=== PATIENT | male | born 1960 | race Caucasian/White ===

== ENCOUNTER → 2020-01-08 09:48 | Outpatient (BNVA) | payer SELFPAY | PROVIDERS: PCP Nurse Practitioner Family; Visit Provider Nurse Practitioner | DX: I10 Essential (primary) hypertension (principal); I48.91 Unspecified atrial fibrillation | CPT/HCPCS: 80053; 80061; 81000; 84443; 85025 ==

== ENCOUNTER → 2020-01-15 15:31 | Outpatient (BNVA) | payer SELFPAY | PROVIDERS: PCP Nurse Practitioner Family; Visit Provider Nurse Practitioner | DX: R73.09 Other abnormal glucose (principal) | CPT/HCPCS: 83036 ==

== ENCOUNTER 2020-01-23 16:42 | Observation (INO) | payer SELFPAY ==
[2020-01-23] VITALS (9 sets, daily range): BP systolic 100–147; BP diastolic 68–115; PULSE 56–157; RESP 10–22; TEMP 36.4–36.9; O2SAT 94–98; BMI 30.9
--- NOTE | 2020-01-23 17:03 | ECG_ITS ---
Measurements Intervals [place] Rate: 128 P: [place]: 0 QRS: 17 QRSD: 113 T: 92 QT: 237 QTc: 346 ATRIAL FIBRILLATION WITH RAPID VENTRICULAR RESPONSE MODERATE INTRAVENTRICULAR CONDUCTION DELAY [110+ ms QRS DURATION] NONSPECIFIC ST & T-WAVE ABNORMALITY Compared to ECG 11/01/2017 17:35:44 Intraventricular conduction delay now present T-wave abnormality now present Sinus bradycardia no longer present Electronically Signed On 01-24-2020 13:03:16 CDT by Steven Walters M.D. [id number]
--- NOTE | 2020-01-23 17:03 | XR_ITS ---
WS: [id number] PORTABLE CHEST HISTORY: afib with rvr COMPARISON: 11/01/2017 Lungs are clear and well expanded. No pleural effusion or pneumothorax. Cardiac size: Normal. Mediastinum/Aorta: Normal mediastinum. No osseous abnormality seen. XR/XR chest 1V portable [id number] IMPRESSION: Unremarkable portable chest.
--- NOTE | 2020-01-23 17:03 | W.ED.GENADLT ---
HPI - General Adult General: Chief complaint: General Medical Stated complaint: fast hr Time Seen by Provider: 01/23/20 16:54 History of Present Illness: HPI narrative: 59-year-old male with history of atrial fibrillation that was on sotalol until a few days ago presents by private vehicle complaining of palpitations that started an hour and a half ago while cutting logs. Dizzy at times diaphoretic. He saw Dr. Vila for the first time a couple of days ago because his heart rate was in the 40s on the sotalol and he was advised to stop taking the sotalol. He states he is never been on any other medication for his A. fib. Denies any chest pain at this time. Associated symptoms: Reports chest pain and palpitations; Deny dyspnea, headache(s), nausea, rash or vomiting Review of Systems General: Reports: 10 or more systems reviewed and unremarkable except in HPI and below Const: Denies: fever(s) or chills Eyes: Denies: change in vision ENMT: Denies: throat pain Card: Reports: chest pain, palpitations, irregular heart rhythm and lightheadedness Resp: Denies: dyspnea GI: Denies: abdominal pain, nausea, vomiting or change in bowel habits : Denies: flank pain Musc: Denies: muscle weakness Skin/Breast: Denies: rash Neuro: Denies: headache(s) Psych: Denies: hopelessness or suicidal ideation Endo: Denies: polyuria Teddy/Lymph: Denies: easy bruising or easy bleeding All/Imm: Denies: urticaria PFS ED PFSH: Medical History (Updated 01/22/20 @ 15:48 by ROSANNA Valentino) Anxiety Atrial fibrillation Hypertension Mixed hyperlipidemia Surgical History History of coronary angioplasty 2016 in [place], [place] History of extraction of renal calculus Family History Other Cancer Diabetes Heart disease Social History Smoking and tobacco status: former smoker Second hand smoke exposure: No Smoking risk assessment/counseling performed?: No Alcohol intake: current Alcohol intake frequency: holidays/special occasions only Desire information about alcohol rehabilitation?: No Counseling given: No Desire information about substance/drug rehabilitation?: No Counseling given: No History of recent travel: No Current gender identity: Male Physical Exam Const: COMMON NORMALS: no acute distress, average body habitus, patient oriented x3, no limitations, healthy appearing, alert and well nourished HENMT: COMMON NORMALS: normocephalic, external ears normal and Normal external nose present HEAD & SCALP: normocephalic NOSE: Normal external nose present EXTERNAL EAR: Yes external ears normal MOUTH: Normal oral and palatal mucosa present THROAT: posterior oropharynx normal Eye: COMMON NORMALS: Equal, round and reactive pupils present, EOMs intact bilaterally, conjunctivae normal, no scleral icterus and normal visual hovoer by confrontation CONJUNCTIVA: Yes conjunctivae normal PUPIL: Yes Equal, round and reactive pupils present Neck/C-Spine: COMMON NORMALS: full ROM, no lymphadenopathy, supple and no meningeal signs CERVICAL SPINE: Yes cervical ROM normal Lymph: LYMPHATIC: no lymphadenopathy noted Chest: COMMONS NORMALS: normal inspection of the chest Resp: COMMON NORMALS: normal respiratory effort, No retractions, No use of accessory muscles and clear to auscultation bilaterally AUSCULTATION: clear to auscultation bilaterally Cardio: COMMON NORMALS: Peripheral pulses 2+ throughout PERIPHERAL PULSES: Peripheral pulses 2+ throughout and radial pulses present OTHER: Tachycardia irregularly irregular. GI: COMMON NORMALS: Normal to inspection, nondistended, normoactive bowel sounds present, Soft to palpation and non-tender AUSCULTATION: Yes normoactive bowel sounds PALPATION: Yes Soft to palpation : COMMON NORMALS: Yes no CVA tenderness BLADDER/KIDNEY EXAM: Yes no CVA tenderness Back/Pelvis: COMMON NORMALS: no CVA tenderness Extremity: COMMON NORMALS: normal to inspection Neuro: COMMON NORMALS: patient oriented x3 SENSORIUM/ORIENTATION: Yes alert MENINGEAL SIGNS: Yes no meningeal signs SPEECH: speech normal Psych: COMMON NORMALS: mental status grossly normal, Normal thought process present, cooperative, normal affect, speech normal, activity/motor behavior normal, denies hallucinations, denies homicidal ideation and denies suicidal ideation SPEECH: Yes normal speech THOUGHT PROCESS: Normal thought process present Skin: COMMON NORMALS: no rashes or lesions noted GENERAL SKIN EXAM: no rashes or lesions noted Course Vital Signs: Vital signs: Vital Signs Temperature 97.5 F L 01/23/20 21:47 Pulse Rate 60 01/23/20 22:18 Respiratory Rate 17 01/23/20 22:18 Blood Pressure 103/68 01/23/20 22:18 Pulse Oximetry 94 01/23/20 22:18 MDM - General Adult MDM Narrative: Medical decision making narrative: Patient given metoprolol 5 mg IV heart rate improved to 128 will repeat he is allergic to amlodipine causes swelling so held off on Cardizem at this time. We will continue to closely monitor. Loaded with digoxin after not seen a significant change with metoprolol. Heart rate currently in the 120s after 3 doses of metoprolol 5 mg each IV and loaded with digoxin patient feels much better at this time no chest pain or pressure. Discussed with hospitalist will admit. I also discussed with Dr. Walters who is on-call for cardiology he had nothing to add at this time and tells me that Dr. Rea is on-call tomorrow since he saw this patient for the first time a couple of days ago if hospital service consults will be Dr. Rea sees the patient tomorrow. Lab Data: Attestation: I reviewed the patient's lab results. Labs: Lab Results 01/23/20 01/23/20 01/23/20 Range/Units 17:26 17:26 17:26 WBC 8.9 (4.0-10.0) 10^3/ uL RBC 4.68 (4.1-5.3) 10^6/u L Hgb 14.7 (11.7-16.6) g/dL Hct 41.5 L (42.0-52.0) % MCV 88.7 (80-94) fL MCH 31.4 (28.0-34.0) pg MCHC 35.4 (30.0-36.0) g/dL RDW 12.0 L (12.1-15.1) % Plt Count 281 (130-400) 10^3/c mm MPV 9.9 (7.4-10.4) fL Neut % (Auto) 71.3 % Lymph % (Auto) 16.9 % [place] % (Auto) 8.4 % Eos % (Auto) 2.6 % Baso % (Auto) 0.6 % Neut # (Auto) 6.4 (1.8-7.7) 10^3/u L Lymph # (Auto) 1.5 (0.8-4.8) 10^3/u L [place] # (Auto) 0.8 (0.2-0.9) 10^3/u L Eos # (Auto) 0.2 (0.0-0.8) 10^3/u L Baso # (Auto) 0.1 (0.0-0.1) 10^3/u L Nucleated RBC % (a uto) 0 % Nucleated RBCs # 0.0 /100WBC Sodium 138 (136-145) mmol/L Potassium 3.4 L (3.5-5.1) mmol/L Chloride 101 (98-107) mmol/L Carbon Dioxide 20 L (22-29) mmol/L Anion Gap 20.4 H (5-19) BUN 17 (8-23) mg/dL Creatinine 1.1 (0.7-1.2) mg/dL GFR Calculation 68.3 L (90-130) mL/min Glucose 99 (65-115) mg/dL Calculated Osmolal ity 282 L (285-295) mOsm/k g Calcium 9.1 (8.5-10.5) mg/dL Total Bilirubin 0.5 (0.15-1.2) mg/dL AST 19 (0-40) U/L ALT 19 (0-41) U/L Alkaline Phosphata se 74 (40-130) IU/L Troponin T Baselin e 13 (0-15) ng/mL Troponin T 120 Min floresita (0-15) ng/mL Delta Troponin T (0-10) ABS# Total Protein 7.5 (6.6-8.7) g/dL Albumin 4.6 (3.5-5.2) g/dL Globulin 2.9 (1.3-4.6) g/dL / Range/Units 19:48 WBC (4.0-10.0) 10^3/ uL RBC (4.1-5.3) 10^6/u L Hgb (11.7-16.6) g/dL Hct (42.0-52.0) % MCV (80-94) fL MCH (28.0-34.0) pg MCHC (30.0-36.0) g/dL RDW (12.1-15.1) % Plt Count (130-400) 10^3/c mm MPV (7.4-10.4) fL Neut % (Auto) % Lymph % (Auto) % [place] % (Auto) % Eos % (Auto) % Baso % (Auto) % Neut # (Auto) (1.8-7.7) 10^3/u L Lymph # (Auto) (0.8-4.8) 10^3/u L [place] # (Auto) (0.2-0.9) 10^3/u L Eos # (Auto) (0.0-0.8) 10^3/u L Baso # (Auto) (0.0-0.1) 10^3/u L Nucleated RBC % (a uto) % Nucleated RBCs # /100WBC Sodium (136-145) mmol/L Potassium (3.5-5.1) mmol/L Chloride (98-107) mmol/L Carbon Dioxide (22-29) mmol/L Anion Gap (5-19) BUN (8-23) mg/dL Creatinine (0.7-1.2) mg/dL GFR Calculation (90-130) mL/min Glucose (65-115) mg/dL Calculated Osmolal ity (285-295) mOsm/k g Calcium (8.5-10.5) mg/dL Total Bilirubin (0.15-1.2) mg/dL AST (0-40) U/L ALT (0-41) U/L Alkaline Phosphata se (40-130) IU/L Troponin T Baselin e (0-15) ng/mL Troponin T 120 Min floresita 25.02 H (0-15) ng/mL Delta Troponin T 12.02 H* (0-10) ABS# Total Protein (6.6-8.7) g/dL Albumin (3.5-5.2) g/dL Globulin (1.3-4.6) g/dL Imaging Data^: CXR: Attestation: I personally reviewed and interpreted this imaging study as follows: My impression: Although this is a portable chest. He may have some cardiomegaly lungs are clear EKG Data^: EKG 1: Attestation: I personally reviewed and interpreted this EKG as follows: EKG interpretation date: 01/23/20 EKG interpretation time: 16:54 Prior EKG tracings: not available for review Interpretation: hr 146 afib with rvr EKG 2: Attestation: I personally reviewed and interpreted this EKG as follows: EKG interpretation date: 01/23/20 EKG interpretation time: 17:13 Interpretation: A. fib with RVR heart rate now 128 Critical Care Time Critical Care Time: Critical Care Time: Yes Total Critical Care Time: 30 Attestation: This case had a high probability of a clinically significant, sudden, or life threatening deterioration of this patient's condition which required my full and direct attention, intervention and personal management. Discharge Plan Discharge Patient Disposition: Admitted As Inpatient Admit Provider: Emanuel Weber Condition: Stable Discharge Date/Time: 01/23/20 20:46 Coding Level of Care Code ED Television Production Assistant for Chg Fwd Exam Comprehensive
[2020-01-23] MEDS: metoprolol tartrate 1 mg/1 mL SDV 5 mL 5 MG IV ×3 (17:07→18:32)
[2020-01-23] MEDS: sodium chloride 0.9% 500 ML 999 ML IV (17:08)
[2020-01-23 17:54] LABS: Basophils # 0.1 10^3/uL (0.0-0.1); Basophils % 0.6 %; Eosinophils # 0.2 10^3/uL (0.0-0.8); Eosinophils % 2.6 %; Hematocrit 41.5 % (42.0-52.0); Hemoglobin 14.7 g/dL (11.7-16.6); Lymphocytes # 1.5 10^3/uL (0.8-4.8); Lymphocytes % 16.9 %; Mean Corpuscular HGB Conc 35.4 g/dL (30.0-36.0); Mean Corpuscular Hemoglobin 31.4 pg (28.0-34.0); Mean Corpuscular Volume 88.7 fL (80-94); Mean Platelet Volume 9.9 fL (7.4-10.4); Monocytes # 0.8 10^3/uL (0.2-0.9); Monocytes % 8.4 %; Neutrophils # 6.4 10^3/uL (1.8-7.7); Neutrophils % 71.3 %; Nucleated Red Blood Cells % 0 %; Platelet Count 281 10^3/cmm (130-400); Red Blood Count 4.68 10^6/uL (4.1-5.3); White Blood Count 8.9 10^3/uL (4.0-10.0)
[2020-01-23 18:12] LABS: Alanine Aminotransferase 19 U/L (0-41); Albumin Level 4.6 g/dL (3.5-5.2); Alkaline Phosphatase 74 IU/L (40-130); Anion Gap 20.4 (5-19); Aspartate Amino Transferase 19 U/L (0-40); Blood Urea Nitrogen 17 mg/dL (8-23); Calcium 9.1 mg/dL (8.5-10.5); Carbon Dioxide 20 mmol/L (22-29); Chloride 101 mmol/L (98-107); Globulin 2.9 g/dL (1.3-4.6); Glomerular Filtration Rate 68.3 mL/min (90-130); Glucose 99 mg/dL (65-115); Osmolality Calculated 282 mOsm/kg (285-295); Potassium 3.4 mmol/L (3.5-5.1); Sodium 138 mmol/L (136-145); Total Bilirubin 0.5 mg/dL (0.15-1.2); Total Protein 7.5 g/dL (6.6-8.7)
[2020-01-23 18:13] LABS: Troponin(5th) Baseline 13 ng/mL (0-15)
[2020-01-23] MEDS: digoxin 250 mcg/ml INJ 2 mL IVP (18:57)
--- NOTE | 2020-01-23 19:43 | PC.NURSE ---
EKG done at 1940 and shown to ER doctor
[2020-01-23 20:19] LABS: Troponin 5 2HR 25.02 ng/mL (0-15)
[2020-01-23 20:30] LABS: Troponin 5 2HR Delta 12.02 ABS# (0-10)
--- NOTE | 2020-01-23 20:33 | PC.NURSE ---
Received critical 2-hour troponin 25.02 and delta 12.02, notified Dr. Todd
--- NOTE | 2020-01-23 21:12 | P.HP_ITS ---
Providers/Chief Complaint Admitting Physician: Emanuel Weber Primary Care Provider: ROSANNA Valentino Chief Complaint: fast hr History of Present Illness Terrell Hatfield is a 59 year old male with past medical history of atrial fibrillation, hypertension, dyslipidemia, recently diagnosed diabetes who is presenting with complaints of palpitations since earlier today. The patient is found to have A. fib with RVR on presentation. He was on sotalol until recently. The dose was gradually decreased recently and stopped several days ago. 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 The patient reports palpitations which were pretty severe. He was given 3 doses of IV metoprolol and was loaded with digoxin. Currently the heart rate is in 120s. He feels a little better. He denies any chest pain. Reports tiredness. No dizziness or lightheadedness. No shortness of breath. He reports similar episodes in the past. He reports allergy to amlodipine which causes generalized swelling. The patient denies any other changes to his medications. He also denies any recreational drugs or excessive or regular alcohol. Review of Systems General: Reports: 10 or more systems reviewed and unremarkable except in HPI and below Medications/Allergies Home Medications Medication Instructions Recorded Confirmed Last Taken Type atorvastatin 40 mg tablet 40 mg PO DAILY 01/07/20 01/23/20 01/23/20 History azilsartan medoxomil 40 1 tab PO DAILY 01/07/20 01/23/20 01/23/20 History mg-chlorthalidone 12.5 mg tablet paroxetine HCl 40 mg tablet 40 mg PO DAILY 01/07/20 01/23/20 01/23/20 History sotalol 120 mg tablet 120 mg PO BID 01/07/20 01/23/20 01/21/20 History metformin 500 mg tablet,extended 500 mg PO BID #60 tab 01/22/20 01/23/20 01/23/20 Rx release 24 hr [id number]-mwhfrxrwrymtu-fstvywjy 2 tab PO Q6H PRN 01/23/20 01/23/20 Unknown History [Excedrin Extra Strength] Allergies Allergy/AdvReac Type Severity Reaction Status Date / Time amlodipine Allergy Unknown ALGY-Swell Verified 01/23/20 16:15 Lip/Tongue/Throat PFSH Acute PFSH: Medical History (Updated 01/22/20 @ 15:48 by ROSANNA Valentino) Anxiety Atrial fibrillation Hypertension Mixed hyperlipidemia Surgical History History of coronary angioplasty 2016 in [place], [place] History of extraction of renal calculus Family History Other Cancer Diabetes Heart disease Social History Smoking and tobacco status: former smoker Second hand smoke exposure: No Smoking risk assessment/counseling performed?: No Alcohol intake: current Alcohol intake frequency: holidays/special occasions only Desire information about alcohol rehabilitation?: No Counseling given: No Desire information about substance/drug rehabilitation?: No Counseling given: No History of recent travel: No Current gender identity: Male Vitals/I&O/Wt Last Vital Signs Temp 97.7 F 01/23/20 16:50 Pulse 135 H 01/23/20 20:53 Resp 10 L 01/23/20 20:53 BP 110/80 01/23/20 20:53 Pulse Ox 96 01/23/20 20:53 Weight last 48 hrs Weight 106.594 kg Physical Exam Narrative: EXAM NARRATIVE: The patient is awake alert and oriented. No acute distress. Mood and affect are appropriate. Responses are adequate. Skin is warm and dry. Moist mucous membranes. Eyes Michela, extraocular muscle intact. Neck is supple. No JVD Lungs are clear bilaterally. No respiratory distress Heart S1, S2, irregularly irregular Abdomen soft, nontender, bowel sounds are present. Extremities no edema cyanosis or calf tenderness bilaterally Neurological examination is nonfocal. Data : 01/23/20 17:26 01/23/20 17:26 Other Labs: Laboratory Results WBC 8.9 10^3/uL (4.0-10.0) 01/23/20 17: RBC 4.68 10^6/uL (4.1-5.3) 01/23/20 17: Hgb 14.7 g/dL (11.7-16.6) 01/23/20 17: Hct 41.5 % (42.0-52.0) L 01/23/20 17: MCV 88.7 fL (80-94) 01/23/20 17: MCH 31.4 pg (28.0-34.0) 01/23/20 17: MCHC 35.4 g/dL (30.0-36.0) 01/23/20 17: RDW 12.0 % (12.1-15.1) L 01/23/20 17: Plt Count 281 10^3/cmm (130-400) 01/23/20 17: MPV 9.9 fL (7.4-10.4) 01/23/20 17: Neut % (Auto) 71.3 % 01/23/20 17: Lymph % (Auto) 16.9 % 01/23/20 17: [place] % (Auto) 8.4 % 01/23/20 17: Eos % (Auto) 2.6 % 01/23/20 17: Baso % (Auto) 0.6 % 01/23/20: Neut # (Auto) 6.4 10^3/uL (1.8-7.7) 01/23/20 17: Lymph # (Auto) 1.5 10^3/uL (0.8-4.8) 01/23/20 17: [place] # (Auto) 0.8 10^3/uL (0.2-0.9) 01/23/20 17: Eos # (Auto) 0.2 10^3/uL (0.0-0.8) 01/23/20 17: Baso # (Auto) 0.1 10^3/uL (0.0-0.1) 01/23/20 17: Nucleated RBC % (auto) 0 % 01/23/20: Nucleated RBCs # 0.0 /100WBC 01/23/20 17: Sodium 138 mmol/L (136-145) 01/23/20 17: Potassium 3.4 mmol/L (3.5-5.1) L 01/23/20 17: Chloride 101 mmol/L (98-107) 01/23/20 17: Carbon Dioxide 20 mmol/L (22-29) L 01/23/20 17: Anion Gap 20.4 (5-19) H 01/23/20 17: BUN 17 mg/dL (8-23) 01/23/20 17:26 Creatinine 1.1 mg/dL (0.7-1.2) 01/23/20 17:26 GFR Calculation 68.3 mL/min (90-130) L 01/23/20 17:26 Glucose 99 mg/dL (65-115) 01/23/20 17:26 Calculated Osmolality 282 mOsm/kg (285-295) L 01/23/20 17:26 Calcium 9.1 mg/dL (8.5-10.5) 01/23/20 17:26 Total Bilirubin 0.5 mg/dL (0.15-1.2) 01/23/20 17:26 AST 19 U/L (0-40) 01/23/20 17:26 ALT 19 U/L (0-41) 01/23/20 17:26 Alkaline Phosphatase 74 IU/L (40-130) 01/23/20 17:26 Troponin T Baseline 13 ng/mL (0-15) 01/23/20 17:26 Troponin T 120 Minute 25.02 ng/mL (0-15) H 01/23/20 19:48 Delta Troponin T 12.02 ABS# (0-10) H* 01/23/20 19:48 Total Protein 7.5 g/dL (6.6-8.7) 01/23/20 17:26 Albumin 4.6 g/dL (3.5-5.2) 01/23/20 17:26 Globulin 2.9 g/dL (1.3-4.6) 01/23/20 17:26 A&P Additional A&P Information 59-year-old gentleman with past medical history of atrial fibrillation, hypertension, dyslipidemia and recently diagnosed diabetes who presents with palpitations. He has A. fib with RVR. I suspect that RVR is related to recently discontinued sotalol. A. fib/RVR. The patient is loaded with digoxin and was given metoprolol IV. We will continue as needed metoprolol. We will try to avoid Cardizem due to history of amlodipine allergy. He was previously considered for anticoagulati on. However he chose not to take anticoagulation due to his profession. 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 His chads 2 score is 2. I believe these for patient and his sales service route manager to decide after initial evaluation. We will also check his TSH. We will monitor his potassium and magnesium level. Hypokalemia. Will replace p.o. and monitor. DVT prophylaxis. Enoxaparin. Diabetes. We will hold his metformin and start him on insulin sliding scale. The patient wants to be full code. The plan of care was discussed with the patient. He verbalized understanding and agreement. Attestations Medical Necessity Statement*: Observation Coding Level of Care Code Acute Cook Vegetable for Herbert Fisher
--- NOTE | 2020-01-23 23:03 | ECG_ITS ---
Measurements Intervals [place] Rate: 130 P: [place]: 0 QRS: 21 QRSD: 101 T: 53 QT: 298 QTc: 439 ATRIAL FIBRILLATION WITH RAPID VENTRICULAR RESPONSE NONSPECIFIC T-WAVE ABNORMALITY ABNORMAL RHYTHM ECG Compared to ECG 11/01/2017 17:35:44 T-wave abnormality now present Sinus bradycardia no longer present Electronically Signed On 01-24-2020 13:07:01 CDT by Steven Walters M.D. [id number]
[2020-01-23] MEDS: enoxaparin 40 mg/0.4 mL Syringe SUBCUT (23:33)
[2020-01-24 00:12] LABS: Troponin 5 6HR 27.76 ng/mL (0-15)
[2020-01-24 00:18] LABS: Troponin 5 6HR Delta 14.76 ng/L (0-12)
[2020-01-24 00:21] LABS: Thyroid Stimulating Hormone 1.76 uIU/mL (0.27-4.20)
[2020-01-24 04:00] VITALS: BP 108/68; PULSE 52; RESP 18; TEMP 36.8; O2SAT 98
[2020-01-24] MEDS: acetaminophen 325 mg Tablet 650 MG PO (04:03)
[2020-01-24 05:04] LABS: Blood Urea Nitrogen 17 mg/dL (8-23); Calcium 9.3 mg/dL (8.5-10.5); Carbon Dioxide 23 mmol/L (22-29); Chloride 104 mmol/L (98-107); Chol HDL Ratio 4.07 mg/dL (1.0-5.00); Cholesterol 118 mg/dL (0-200); Glomerular Filtration Rate 76.2 mL/min (90-130); Glucose 104 mg/dL (65-115); HDL Cholesterol 29 mg/dL (60-100); LDL Cholesterol Calculated 50 mg/dL (50-129); LDL HDL Ratio 1.72 RATIO (0.00-3.22); Magnesium 2.3 mg/dL (1.7-2.3); Osmolality Calculated 285 mOsm/kg (285-295); Phosphorus 3.3 mg/dL (2.5-4.5); Sodium 139 mmol/L (136-145); Triglycerides 197 mg/dL (0-150)
[2020-01-24 06:27] LABS: Glucose Point of Care 92 mg/dL (70-110)
[2020-01-24 08:06] VITALS: BP 106/68; PULSE 52; RESP 10; TEMP 36.5; O2SAT 98
[2020-01-24] MEDS: atorvastatin 40 mg Tablet PO (09:23)
--- NOTE | 2020-01-24 10:34 | PC.CHAP ---
Pastoral Care Encounter/Spiritual Assessment Type of Contact [] Declined guest service host visit [] Patient/Family/Request visit [] Outpatient visit [] Follow-up visit [] Physician referral [] Code/Alert [x] Routine visit [] Staff referral [] Actively dying [] Patient sleeping [] Family support [] [] Out of room [] Palliative care [] [] Receiving care in room [] Pre-surgical visit [] Trauma [] Long length of stay [] ICU visit [] Other: Relational/Emotional Strength [x] Patient feels connected with others/family/visitors/staff [] Distress [] Loneliness/isolation [] Abandonment Spirituality of Patient [x] Person of Gerri [] Attends Yarsanism of their Gerri [x] Believes in Prayer [x] Reads Bible or Baptism materials [] There are Spiritual issues to be addressed Decision Support Analyst Interventions [x] Prayer [x] Active listening [x] Non-anxious presence [] Spiritual/emotional support [] Crisis/trauma care [] Spiritual counseling [] Bereavement support [] Provided bereavement packet [] Provided Bible/devotional materials [] Provided toy/stuffed animal, coloring book to patient or family member [] Provided Communion [] Anointing/[place] [] Salvation [] Completed spiritual assessment [] Other: Impact on Illness or Injury [] Angry [] Fearful [] Anxious [] Often cries [] Exhaustion [] Unable to work [] Unable to attend quaker [] Unable to walk/stand [] Unable to read [] Unable to drive [] Unable to eat/drink [] Unable to sleep [] Unable to be with family [] Patient intubated [] Other: Summary Pt expects to be discharged later today Decision Support Analyst Carrol Grimes Time spent with patient 7 minutes
[2020-01-24 12:00] VITALS: BP 140/77; PULSE 66; RESP 18; TEMP 36.7; O2SAT 96
[2020-01-24 12:09] LABS: Glucose Point of Care 154 mg/dL (70-110)
--- NOTE | 2020-01-24 13:21 | PM.CONSULT ---
Providers/Reason For Consult Consulting Physican/Specialty*: Cardiology Reason for Consult*: Tachybradycardia syndrome Attending Physician: Arnie Gonzalez MD Primary Care Provider: ROSANNA Valentino History of Present Illness History of Present Illness Terrell Hatfield is a 59 year old male admitted with atrial fibrillation rapid ventricular response started on Cardizem which resulted in conversion to sinus rhythm however patient was noted to have bradycardia over the telemetry into 50s occasionally drop down to 40s. It is the reason we have been asked to come and see him. Recently patient visited with me in the clinic. He has underlying sick sinus syndrome. At one point he was on sotalol 120 twice daily which was reduced to 60 once a days nowadays as his heart rate slowing down. He saw me few days ago in my clinic due to significant bradycardia with heart rate into 40s I discontinue sotalol however patient ended up in the hospital with A. fib RVR. 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 In the past we have initiated talk about possible A. fib ablation versus medicine and possibility of pacemaker placement for therapeutic purpose. We have tried our best in optimizing medicine and regularizing heart rate. Patient has refused anticoagulation. He understands the risks. He is a carpenter foreman therefore he does not want to take any risk for bleeding. Review of Systems General: Reports: 10 or more systems reviewed and unremarkable except in HPI and below Const: Denies: fever(s) or chills Eyes: Denies: change in vision ENMT: Denies: throat pain Card: Reports: chest pain, palpitations, irregular heart rhythm and lightheadedness Resp: Denies: dyspnea GI: Denies: abdominal pain, nausea, vomiting or change in bowel habits : Denies: flank pain Musc: Denies: muscle weakness Skin/Breast: Denies: rash Neuro: Denies: headache(s) Psych: Denies: hopelessness or suicidal ideation Endo: Denies: polyuria Teddy/Lymph: Denies: easy bruising or easy bleeding All/Imm: Denies: urticaria Meds/Allergies Home Medications and Allergies Home Medications Medication Instructions Recorded Confirmed Last Taken Type atorvastatin 40 mg tablet 40 mg PO DAILY 01/07/20 01/23/20 01/23/20 History azilsartan medoxomil 40 1 tab PO DAILY 01/07/20 01/23/20 01/23/20 History mg-chlorthalidone 12.5 mg tablet paroxetine HCl 40 mg tablet 40 mg PO DAILY 01/07/20 01/23/20 01/23/20 History metformin 500 mg tablet,extended 500 mg PO BID #60 tab 01/22/20 01/23/20 01/23/20 Rx release 24 hr vohmswf-mdltpllnhtokp-gkcyvqfh 2 tab PO Q6H PRN 01/23/20 01/23/20 Unknown History [Excedrin Extra Strength] sotalol 60 mg PO DAILY #0 tab 01/24/20 01/23/20 01/21/20 Rx Allergies Allergy/AdvReac Type Severity Reaction Status Date / Time amlodipine Allergy Unknown ALGY-Swell Verified 01/23/20 16:15 Lip/Tongue/Throat Current Medications Current Medications Generic Name Dose Route Start Last Admin Trade Name Freq PRN Reason Stop Dose Admin Acetaminophen 650 mg 01/23/20 21:02 01/24/20 04:03 Tylenol PO 650 mg Q6H PRN Administration Mild/Mod Pain Or Temp >/= 101 Atorvastatin Calcium 40 mg 01/24/20 09:00 01/24/20 09:23 Lipitor PO 40 mg DAILY LUCINDA Administration Enoxaparin Sodium 40 mg 01/23/20 21:15 01/23/20 23:33 Lovenox SUBCUT 40 mg Q24H LUCINDA Administration Insulin Aspart 0 unit 01/24/20 08:00 01/24/20 12:07 Novolog SUBCUT 2 unit TIDWM LUCINDA Administration Protocol PFSH Acute PFSH: Medical History Anxiety Atrial fibrillation Hypertension Mixed hyperlipidemia Surgical History History of coronary angioplasty 2016 in [place], [place] History of extraction of renal calculus 1979' Family History Other Cancer Diabetes Heart disease Social History Smoking and tobacco status: former smoker Second hand smoke exposure: No Smoking risk assessment/counseling performed?: No Alcohol intake: current Alcohol intake frequency: holidays/special occasions only Desire information about alcohol rehabilitation?: No Counseling given: No Desire information about substance/drug rehabilitation?: No Counseling given: No History of recent travel: No Current gender identity: Male Dietary Habits: Current diet type/program: regular Caffeine: Yes Exercise: What type of physical activity do you participate in?: none Safety: Seatbelt use: always Home Safety: Working smoke detector in home: Yes Fire extinguisher in home: Yes Carbon monoxide detector in home: Yes Vitals/I&O/Wt Last Vital Signs Temp 98.1 F 01/24/20 12:00 Pulse 66 01/24/20 12:00 Resp 18 01/24/20 12:00 BP 140/77 01/24/20 12:00 Pulse Ox 96 01/24/20 12:00 01/23/20 01/24/20 01/24/20 22:59 06:59 14:59 Intake Total 120 / 120 Balance 120 / 120 Weight last 48 hrs Weight 234 lb 1.6 oz Weight 233 lb 8 oz Weight 235 lb Physical Exam Narrative: EXAM NARRATIVE: GENERAL: Patient is alert, awake and oriented x3. NECK: No jugular vein distension. HEENT: No cyanosis. No icterus. No pallor. HEART: Regular S1 and S2. No murmur, rub or gallop. LUNGS: Clear to auscultate bilaterally. ABDOMEN: Soft, nontender and nondistended. Positive bowel sounds. No guarding, rebound or tenderness. CENTRAL NERVOUS SYSTEM: Grossly nonfocal. EXTREMITIES: Lower extremities without edema bilaterally. A&P Assessment and plan (1) Atrial fibrillation: Really patient is sinus rhythm we will put him on 60 mg of sotalol. We will send him home with event monitor since it is not available he may can pick it up on Monday. Patient has been advised in case of episode of A. fib he can increase sotalol to 60 mg twice a day and let me know. Based upon event monitor report we will decide whether he needs a pacemaker or not. Patient has been advised in case of slowness of heart rate dizziness fatigue he should come to the ER. Status: Chronic (2) Hypertension: Well-controlled. Continue medicine Status: Chronic Consult Attestations Medical Necessity Statement: Patient can be discharged home Coding Level of Care Code New Pt Acute Contract Negotiation Manager for Chg Fwd Patient Type New History Expanded Problem Focused Exam Expanded Problem Focused Medical Decision Making Moderate Complexity Diagnoses Atrial fibrillation I48.91 Hypertension I10
--- NOTE | 2020-01-24 13:54 | PM.DCS ---
Discharge Providers Date of Admission: 01/23/20 20:46 Date of Discharge: January 24, 2020 Attending Provider at Admission: Emanuel Weber Attending Provider at Discharge: Arnie Gonzalez MD Primary Care Provider: ROSANNA Valentino Reason for Visit Reason for Visit: Reason For Visit: fast hr Hospital Course Hospital Course: Terrell is a 59-year-old white male who presented with atrial fibrillation with rapid ventricular rate. He was recently taken off his sotalol. TSH was checked and normal. Troponin with no significant delta. He ultimately got several doses of IV metoprolol, and 1 dose of IV digoxin and converted to sinus rhythm, bradycardia, which was asymptomatic. Cardiology was consulted who recommended he restart on his sotalol 60 mg once daily, event monitor to be placed, and follow-up in cardiology clinic. This was arranged. Physical Exam Narrative: EXAM NARRATIVE: General exam no apparent distress Cardiovascular regular rate and rhythm without murmur, slightly bradycardic Lungs clear Abdomen is soft with positive bowel sounds Extremities no cyanosis clubbing or edema Discharge Data Data Completed and Pending: Completed Studies During Hospitalization Category Date Time Status XR chest 1V subhash ble [id number] Stat Exams 01/23/20 17:03 Completed Pending at discharge Category Date Time Status CA 30 day event m onitor Routine Exams 01/24/20 13:21 Ordered Labs from last 24 hours 01/24/20 01/24/20 01/24/20 11:43 06:18 04:00 WBC RBC Hgb Hct MCV MCH MCHC RDW Plt Count MPV Neut % (Auto) Lymph % (Auto) Dawes % (Auto) Eos % (Auto) Baso % (Auto) Neut # (Auto) Lymph # (Auto) Dawes # (Auto) Eos # (Auto) Baso # (Auto) Nucleated RBC % (a uto) Nucleated RBCs # Sodium Potassium Chloride Carbon Dioxide Anion Gap BUN Creatinine GFR Calculation Glucose POC Glucose 154 92 Calculated Osmolal ity Calcium Phosphorus Magnesium Total Bilirubin AST ALT Alkaline Phosphata se Troponin I 6 Hour Troponin I Hi Sens Del Troponin T Baselin e Troponin T 120 Min capitan grande band Delta Troponin T Total Protein Albumin Globulin Triglycerides 197 H Cholesterol 118 LDL Cholesterol, C alc 50 HDL Cholesterol 29 L LDL/HDL Ratio 1.72 Cholesterol/HDL Ra haroon 4.07 TSH 01/24/20 01/23/20 01/23/20 04:00 23:40 23:40 WBC RBC Hgb Hct MCV MCH MCHC RDW Plt Count MPV Neut % (Auto) Lymph % (Auto) Dawes % (Auto) Eos % (Auto) Baso % (Auto) Neut # (Auto) Lymph # (Auto) Dawes # (Auto) Eos # (Auto) Baso # (Auto) Nucleated RBC % (a uto) Nucleated RBCs # Sodium 139 Potassium 4.0 Chloride 104 Carbon Dioxide 23 Anion Gap 16.0 BUN 17 Creatinine 1.0 GFR Calculation 76.2 L Glucose 104 POC Glucose Calculated Osmolal ity 285 Calcium 9.3 Phosphorus 3.3 Magnesium 2.3 Total Bilirubin AST ALT Alkaline Phosphata se Troponin I 6 Hour 27.76 H Troponin I Hi Sens Del 14.76 H* Troponin T Baselin e Troponin T 120 Min cap[place] grande band Delta Troponin T Total Protein Albumin Globulin Triglycerides Cholesterol LDL Cholesterol, C alc HDL Cholesterol LDL/HDL Ratio Cholesterol/HDL Ra haroon TSH 1.76 01/23/20 01/23/20 01/23/20 19:48 17:26 17:26 WBC RBC Hgb Hct MCV MCH MCHC RDW Plt Count MPV Neut % (Auto) Lymph % (Auto) Dawes % (Auto) Eos % (Auto) Baso % (Auto) Neut # (Auto) Lymph # (Auto) Dawes # (Auto) Eos # (Auto) Baso # (Auto) Nucleated RBC % (a uto) Nucleated RBCs # Sodium 138 Potassium 3.4 L Chloride 101 Carbon Dioxide 20 L Anion Gap 20.4 H BUN 17 Creatinine 1.1 GFR Calculation 68.3 L Glucose 99 POC Glucose Calculated Osmolal ity 282 L Calcium 9.1 Phosphorus Magnesium Total Bilirubin 0.5 AST 19 ALT 19 Alkaline Phosphata se 74 Troponin I 6 Hour Troponin I Hi Sens Del Troponin T Baselin e 13 Troponin T 120 Min capitan [place] band 25.02 H Delta Troponin T 12.02 H* Total Protein 7.5 Albumin 4.6 Globulin 2.9 Triglycerides Cholesterol LDL Cholesterol, C alc HDL Cholesterol LDL/HDL Ratio Cholesterol/HDL Ra haroon TSH 01/23/20 17:26 WBC 8.9 RBC 4.68 Hgb 14.7 Hct 41.5 L MCV 88.7 MCH 31.4 MCHC 35.4 RDW 12.0 L Plt Count 281 MPV 9.9 Neut % (Auto) 71.3 Lymph % (Auto) 16.9 Dawes % (Auto) 8.4 Eos % (Auto) 2.6 Baso % (Auto) 0.6 Neut # (Auto) 6.4 Lymph # (Auto) 1.5 Dawes # (Auto) 0.8 Eos # (Auto) 0.2 Baso # (Auto) 0.1 Nucleated RBC % (a uto) 0 Nucleated RBCs # 0.0 Sodium Potassium Chloride Carbon Dioxide Anion Gap BUN Creatinine GFR Calculation Glucose POC Glucose Calculated Osmolal ity Calcium Phosphorus Magnesium Total Bilirubin AST ALT Alkaline Phosphata se Troponin I 6 Hour Troponin I Hi Sens Del Troponin T Baselin e Troponin T 120 Min capitan grande band Delta Troponin T Total Protein Albumin Globulin Triglycerides Cholesterol LDL Cholesterol, C alc HDL Cholesterol LDL/HDL Ratio Cholesterol/HDL Ra haroon TSH Vitals: Last Vital Signs Temp 98.1 F 01/24/20 12:00 Pulse 66 01/24/20 12:00 Resp 18 01/24/20 12:00 BP 140/77 01/24/20 12:00 Pulse Ox 96 01/24/20 12:00 Discharge Plan Discharge Patient Disposition: Home, Self-Care Condition: Stable Prescriptions: Continued atorvastatin 40 mg tablet 40 mg PO DAILY RF: 0 Edarbyclor 40-12.5 mg tablet 1 tab PO DAILY RF: 0 paroxetine HCl [Paxil] 40 mg tablet 40 mg PO DAILY RF: 0 metformin 500 mg tablet extended release 24 hr 500 mg PO BID Qty: 60 RF: 2 Excedrin Extra Strength 250-250-65 mg Tablet 2 tab PO Q6H PRN (Reason: Pain) RF: 0 Changed sotalol 120 mg tablet 60 mg PO DAILY Qty: 0 RF: 0 Discharge Orders: Discharge Order (Routine); Ordered 01/24/20 Ordered By: Arnie Gonzalez Other Ambulatory Orders: CA cardiac event monitor (Routine) Timeframe: 1 Day Facility: [facility] - Location: Cardiac Diagnostic Laboratory Ordered By: Arnie Gonzalez Referrals: Edita Murillo FNP-C [Primary Care Provider] - 4-7 days Sera Rea MD [Physician] - 1 week Discharge Diet: Cardiac Discharge Activity: Increase activity as tolerated Activity Restrictions/Additional Instructions: Event monitor on discharge, results to Dr. Rea Contact cardiology office for any recurrence of atrial fibrillation Discharge Attestations Time Spent in Discharge Care*: greater than 30 min Quality Metrics Clinical Quality Measures During this hospital stay, did patient experience: None Coding Level of Care Code Acute Supervisor Cytogenetic Laboratory for Herbert Fisher
--- NOTE | 2020-01-24 13:56 | PC.NURSE ---
Heart care services contacted regarding 30 day union laborer. Monitor unable to be placed until Monday, January 27, 2020. Dr. Rea notified. RBVO received over telephone to discharge patient today and schedule monitor to be placed on Monday.
[2020-01-24 14:09] VITALS: BP 140/77; PULSE 66; RESP 18; TEMP 36.7; O2SAT 96
--- NOTE | 2020-01-24 14:50 | PC.NURSE ---
Discharge instructions given per the physician's order. Patient verbalized understanding and did not have any further questions.
--- NOTE | 2020-01-31 17:56 | PM.PN ---
Subjective Subjective: Interval history: Please note that this is a telephone conversation with Mr. Hatfield as I was informed by [employer] regarding event monitor that patient has A. fib with RVR he was symptomatic heart rate was into 190. He is on 60 mg of sotalol twice daily. He has history of tachybradycardia syndrome. We will increase sotalol to 80 mg twice a day since he is remained symptomatic. Patient has been advised in case of excessive slowing of heart rate into 40s dizziness fatigue he can call 911 and go to emergency room. We will also refer him for possible ablation. I will also send him 80 mg twice daily of sotalol. Vitals/I&O/Wt Last Vital Signs Temp 98.1 F 01/24/20 14:09 Pulse 66 01/24/20 14:09 Resp 18 01/24/20 14:09 BP 140/77 01/24/20 14:09 Pulse Ox 96 01/24/20 14:09 Data : 01/23/20 17:26 01/24/20 04:00 Attestations Medical Necessity Statement*: Please note that this is a telephone conversation with the patient Coding Level of Care Code Acute Molasses Coloring Operator for Herbert Fisher
== END 2020-01-24 15:45 | disposition home or self-care (01) ==
LOC: ER 20:47 → CSU 21:24
PROVIDERS: Emergency Medicine; Admitting Provider Internal Medicine; PCP Nurse Practitioner; Visit Provider Internal Medicine
DX: I48.91 Unspecified atrial fibrillation (principal); I10 Essential (primary) hypertension; E11.9 Type 2 diabetes mellitus without complications; Z79.84 Long term (current) use of oral hypoglycemic drugs; Z79.82 Long term (current) use of aspirin; F41.9 Anxiety disorder, unspecified; E78.2 Mixed hyperlipidemia; Z82.49 Family history of ischemic heart disease and other diseases of the circulatory system; Z83.3 Family history of diabetes mellitus; Z87.891 Personal history of nicotine dependence; E87.6 Hypokalemia
CPT/HCPCS: 12345; 36415; 36416; 71045; 80048; 80053; 80061; 82962; 83735; 84100; 84443; 84484; 85025; 93005; 96372; 99283; G0378; J1160; J1650; J1815; J3490; J7040

== ENCOUNTER → 2020-07-27 17:15 | Outpatient (BNVA) | payer SELFPAY | PROVIDERS: PCP Nurse Practitioner; Visit Provider Nurse Practitioner Family | DX: E78.2 Mixed hyperlipidemia (principal); E11.9 Type 2 diabetes mellitus without complications | CPT/HCPCS: 80053; 80061; 82043; 83036; 83735; 85025 ==

== ENCOUNTER → 2021-03-04 09:16 | Outpatient (BNVA) | payer SELFPAY | PROVIDERS: PCP Nurse Practitioner; Visit Provider Nurse Practitioner Family | DX: E11.9 Type 2 diabetes mellitus without complications (principal); R53.83 Other fatigue; E78.2 Mixed hyperlipidemia; M25.511 Pain in right shoulder; M25.512 Pain in left shoulder; G89.29 Other chronic pain; M19.011 Primary osteoarthritis, right shoulder; Z12.5 Encounter for screening for malignant neoplasm of prostate | CPT/HCPCS: 73030; 80053; 80061; 82306; 82607; 83036; 84403; 84443; 85025; G0103 ==

== ENCOUNTER 2021-09-09 16:15 | Observation (INO) | payer SELFPAY ==
--- NOTE | 2021-09-09 | CTR_ITS ---
[place] Final Radiology Report with Addendum Call: [phone] assistance Online chat: [email or web address] Name: ALLAN GOODSON Age: 60Years M Date: 09/09/2021 SSN: -- : 1960 Study: CTA HEAD Requesting Physician: BRANDEE KIDD Images: 544 Add?l Studies: Provided Clinical History: visual loss Addendum created by Jeremy Crowder MD on 09/09/2021 7:20 PM Central Time ([place] & [place]): THIS REPORT CONTAINS FINDINGS THAT MAY BE CRITICAL TO PATIENT CARE. The findings were verbally communicated via telephone conference with BRANDEE KIDD at 7:19 PM NEWSPAPER DELIVERY DRIVER on 09/09/2021. The findings were acknowledged and understood. Initial Report created on 09/09/2021 7:11 PM Central Time ([place] & [place]): PROCEDURE INFORMATION: Exam: CT Angiography Head With Contrast, Arteriography Exam date and time: 09/09/2021 4:43 PM Age: 60 years old Clinical indication: Visual disturbance; Sudden visual loss; Patient HX: Sudden right eye vision loss, no injury, no pain TECHNIQUE: Imaging protocol: Computed tomography angiography of the head with contrast. Exam focused on the arteries. 3D rendering (Not supervised by radiologist): MIP and/or 3D reconstructed images were created by the technologist. Radiation optimization: All CT scans at this facility use at least one of these dose optimization techniques: automated exposure control; mA and/or kV adjustment per patient size (includes targeted exams where dose is matched to clinical indication); or iterative reconstruction. Contrast material: VISI 320; Contrast volume: 95 ml; Contrast route: INTRAVENOUS (IV); COMPARISON: CT head wo con* [id number] 09/09/2021 4:44 PM RADIATION DOSE METRICS: Total DLP (mGy-cm): 621.58 FINDINGS: ANTERIOR CIRCULATION: Right internal carotid artery: There is mild atherosclerotic disease in the cavernous portion of the right internal carotid artery without significant stenosis. Right middle cerebral artery: Unremarkable. No occlusion or significant stenosis. No aneurysm. Right anterior cerebral artery: Unremarkable. No occlusion or significant stenosis. No aneurysm. Left internal carotid artery: There is mild atherosclerotic disease in the cavernous portion of the left internal carotid artery without significant stenosis. Left middle cerebral artery: Unremarkable. No occlusion or significant stenosis. No aneurysm. Left anterior cerebral artery: Unremarkable. No occlusion or significant stenosis. No aneurysm. POSTERIOR CIRCULATION: Right vertebral artery: The right vertebral artery is hypoplastic and does not contribute to the basilar artery. Left vertebral artery: Unremarkable. No occlusion or significant stenosis. No aneurysm. Basilar artery: Unremarkable. No occlusion or significant stenosis. No aneurysm. Right posterior cerebral artery: origin of the right posterior cerebral artery. No occlusion or aneurysm. Left posterior cerebral artery: There is occlusion of the left posterior cerebral artery at the level of the tentorial margin (P3 segment). See coronal series 601, image 36 and 34. See also axial series 4 image 54 through 57. Veins: Dural venous sinuses are patent. Brain: No definite mass, mass effect, or midline shift. Cerebral ventricles: No ventriculomegaly. Bones/joints: Unremarkable. No acute fracture. Soft tissues: Unremarkable. 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 Thank you for allowing us to participate in the care of your patient. Dictated and Authenticated by: Jeremy Crowder MD 09/09/2021 7:11 PM Central Time ([place] & [place]) ARNIE
--- NOTE | 2021-09-09 | CTR_ITS ---
[facility] Final Radiology Report Call: [phone] assistance Online chat: [email or web address] Name: ALLAN GOODSON Age: 60Years M Date: 09/09/2021 SSN: -- : 1960 Study: CTA NECK Requesting Physician: BRANDEE KIDD Images: 1 Add?l Studies: Provided Clinical History: visual loss PROCEDURE INFORMATION: Exam: CT Angiography Neck With Contrast Exam date and time: 09/09/2021 4:43 PM Age: 60 years old Clinical indication: Visual disturbance; Sudden visual loss; Patient HX: Sudden right eye vision loss, no injury, no pain TECHNIQUE: Imaging protocol: Computed tomography angiography of the neck with contrast. 3D rendering (Not supervised by radiologist): MIP and/or 3D reconstructed images were created by the technologist. Radiation optimization: All CT scans at this facility use at least one of these dose optimization techniques: automated exposure control; mA and/or kV adjustment per patient size (includes targeted exams where dose is matched to clinical indication); or iterative reconstruction. Contrast material: VISIPAQUE 320; Contrast volume: 95 ml; Contrast route: INTRAVENOUS (IV); COMPARISON: CT head wo con* [id number] 09/09/2021 4:44 PM RADIATION DOSE METRICS: Total DLP (mGy-cm): 2435.91 FINDINGS: Right common carotid artery: No stenosis. No dissection or occlusion. Right internal carotid artery: No stenosis of the extracranial segment. No dissection or occlusion. Right external carotid artery: No occlusion or stenosis of the origin. Left common carotid artery: No stenosis. No dissection or occlusion. Left internal carotid artery: No stenosis of the extracranial segment. No dissection or occlusion. Left external carotid artery: No occlusion or stenosis of the origin. Right vertebral artery: Patent hypoplastic right vertebral artery. Left vertebral artery: No stenosis. No dissection or occlusion. Lymph nodes: There are prominent upper mediastinal lymph nodes. Soft tissues: There are dystrophic calcifications in the distal subscapularis muscle bilaterally. No edema, mass or lymphadenopathy in the neck. Bones/joints: There is moderate degenerative disc disease C5-C6. Lungs: Lung apices are clear. IMPRESSION: No arterial stenosis, occlusion or dissection. REFERENCES: NASCET CRITERIA. The degree of internal carotid artery stenosis is based on NASCET criteria. Normal is no stenosis. Mild is less than 50% stenosis. Moderate is 50-69% stenosis. Severe is 70% to 99% stenosis. Total occlusion is no detectable patent lumen. Thank you for allowing us to participate in the care of your patient. 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 ADDENDUM: 09/09/211920 THIS REPORT CONTAINS FINDINGS THAT MAY BE CRITICAL TO PATIENT CARE. The findings were verbally communicated via telephone conference with BRANDEE KIDD at 7:19 PM EMERGENCY SPECIALIST on 09/09/2021. The findings were acknowledged and understood.
--- NOTE | 2021-09-09 | CTR_ITS ---
ADDENDUM CT/CT angio headneck* [id number] THIS REPORT CONTAINS FINDINGS THAT MAY BE CRITICAL TO PATIENT CARE. The findings were verbally communicated via telephone conference with BRANDEE KIDD at 7:19 PM SODA FLAKER on 09/09/2021. The findings were acknowledged and understood. Addendum Dictated By: Jeremy Crowder MD Addendum Signed By: Jeremy Crowder MD Signed Date/Time: 09/09/211920 Addendum Cosigned By: PROCEDURE INFORMATION: Exam: CT Angiography Head With Contrast, Arteriography Exam date and time: 09/09/2021 4:43 PM Age: 60 years old Clinical indication: Visual disturbance; Sudden visual loss; Patient HX: Sudden right eye vision loss, no injury, no pain TECHNIQUE: Imaging protocol: Computed tomography angiography of the head with contrast. Exam focused on the arteries. 3D rendering (Not supervised by radiologist): MIP and/or 3D reconstructed images were created by the technologist. Radiation optimization: All CT scans at this facility use at least one of these dose optimization techniques: automated exposure control; mA and/or kV adjustment per patient size (includes targeted exams where dose is matched to clinical indication); or iterative reconstruction. Contrast material: VISI 320; Contrast volume: 95 ml; Contrast route: INTRAVENOUS (IV); COMPARISON: CT head wo con* [id number] 09/09/2021 4:44 PM RADIATION DOSE METRICS: Total DLP (mGy-cm): 621.58 FINDINGS: ANTERIOR CIRCULATION: Right internal carotid artery: There is mild atherosclerotic disease in the cavernous portion of the right internal carotid artery without significant stenosis. Right middle cerebral artery: Unremarkable. No occlusion or significant stenosis. No aneurysm. Right anterior cerebral artery: Unremarkable. No occlusion or significant stenosis. No aneurysm. Left internal carotid artery: There is mild atherosclerotic disease in the cavernous portion of the left internal carotid artery without significant stenosis. Left middle cerebral artery: Unremarkable. No occlusion or significant stenosis. No aneurysm. Left anterior cerebral artery: Unremarkable. No occlusion or significant stenosis. No aneurysm. POSTERIOR CIRCULATION: Right vertebral artery: The right vertebral artery is hypoplastic and does not contribute to the basilar artery. Left vertebral artery: Unremarkable. No occlusion or significant stenosis. No aneurysm. Basilar artery: Unremarkable. No occlusion or significant stenosis. No aneurysm. Right posterior cerebral artery: origin of the right posterior cerebral artery. No occlusion or aneurysm. Left posterior cerebral artery: There is occlusion of the left posterior cerebral artery at the level of the tentorial margin (P3 segment). See coronal series 601, image 36 and 34. See also axial series 4 image 54 through 57. Veins: Dural venous sinuses are patent. Brain: No definite mass, mass effect, or midline shift. Cerebral ventricles: No ventriculomegaly. Bones/joints: Unremarkable. No acute fracture. Soft tissues: Unremarkable. 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 Dictated By: Jeremy Crowder MD Signed By: Jeremy Crowder MD Signed Date/Time: 09/09/211912 DD/ 164 ARNIE
[2021-09-09 16:26] VITALS: BP 131/81; PULSE 60; RESP 16; TEMP 36.9; O2SAT 96; BMI 31.6
--- NOTE | 2021-09-09 16:26 | W.ED.EYEPROB ---
HPI - Eye Problem General: Chief complaint: Eye Problems Stated complaint: NO VISION IN R EYE/VERY SUDDEN Time Seen by Provider: 09/09/21 16:25 History of Present Illness: HPI Narrative: 60-year-old male presents to the emergency room approximately hour and half to 2 hours after onset of loss of vision in the right eye. He was working outside began to notice there was something off with his vision. Then at 1 point he covered his left eye and realized he really could not see anything out of his right eye. He estimates the time to be an hour and 1/2 to 2 hours prior from arrival but that is when he actually realized that there was a problem. He is not previously had vision problems patient does have known atrial fibrillation in discussing with him nearly once a week he will have what sounds like A. fib with RVR. Interestingly he exerts himself sometimes by running other times by doing push-ups but some sort of exertion will actually converted back into normal sinus rhythm or least get out of the rapid ventricular response. 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 He has no other symptoms at this time see NIH score. At the time of exam patient is already having improvement in his vision compared to what he had noticed when he made the decision to come in to the ER. chief complaint: vision change Onset (ago): minute(s) Onset description: sudden Duration: intermittent and improved Location: right eye Eye Symptoms: decreased vision Place: street/outdoors Severity: moderate Associated symptoms: Denies cough, fever(s), headache(s), nausea, neck pain, numbness, rhinorrhea, short of breath, vomiting or weakness Treatments Prior to Arrival: none Review of Systems Const: Denies: fever(s) ENMT: Denies: throat pain, ear or mastoid pain, nasal discharge or nasal congestion Card: Reports: palpitations, irregular heart rhythm, lightheadedness and pre-syncope (Associated with palpitations what patient describes as his A. fib); Denies: chest pain, edema, dyspnea on exertion or orthopnea Resp: Denies: dyspnea, productive cough or non-productive cough GI: Denies: nausea or vomiting : Denies: flank pain, dysuria, urinary frequency or urinary urgency Musc: Denies: neck pain Skin/Breast: Denies: rash or pruritus Neuro: Denies: headache(s) PFSH ED PFS: Medical History (Updated 09/10/21 @ 06:35 by Leslie Cat MD) Anxiety Atrial fibrillation Hypertension Mixed hyperlipidemia Sick sinus syndrome due to sinoatrial node dysfunction Surgical History History of coronary angioplasty 2016 in [place], [place] History of extraction of renal calculus 1979' Family History Other Cancer Diabetes Heart disease Social History Smoking and tobacco status: former smoker Second hand smoke exposure: No Smoking risk assessment/counseling performed?: No Alcohol intake: current Alcohol intake frequency: holidays/special occasions only Desire information about alcohol rehabilitation?: No Counseling given: No Desire information about substance/drug rehabilitation?: No Counseling given: No History of recent travel: No Current gender identity: Male Physical Exam Const: COMMON NORMALS: no acute distress GENERAL APPEARANCE: cooperative and comfortable ORIENTATION/CONSCIOUSNESS: Yes awake, Yes oriented to person, Yes oriented to place and Yes oriented to time HENMT: COMMON NORMALS: normocephalic, atraumatic, hearing grossly normal bilaterally, external ears normal, EAC's normal, TM's normal bilaterally, Normal nasal mucous membranes and turbinates present, moist oral mucous membranes and oropharynx normal HEAD & SCALP: normocephalic and atraumatic NOSE: Normal nasal mucous membranes and turbinates present EXTERNAL EAR: Yes external ears normal EXTERNAL AUDITORY CANAL: EAC's normal TYMPANIC MEMBRANE: TM's normal bilaterally Eye: COMMON NORMALS: Equal, round and reactive pupils present, EOMs intact bilaterally, conjunctivae normal and no scleral icterus CONJUNCTIVA: Yes conjunctivae normal PUPIL: Yes Equal, round and reactive pupils present Neck/C-Spine: COMMON NORMALS: full ROM, no lymphadenopathy, supple and no JVD Resp: COMMON NORMALS: normal respiratory effort, No retractions, No use of accessory muscles and clear to auscultation bilaterally AUSCULTATION: clear to auscultation bilaterally Cardio: COMMON NORMALS: no JVD, regular rate, regular rhythm and No murmurs present (Cardio) RATE: regular rate RHYTHM: regular rhythm GI: COMMON NORMALS: Soft to palpation and No hepatosplenomegaly present AUSCULTATION: Yes normoactive bowel sounds PALPATION: Yes Soft to palpation, No Tenderness to palpation present (GI), No Guarding due to palpation present (GI) and Yes No hepatosplenomegaly present Extremity: COMMON NORMALS: normal to inspection, capillary refill normal, no clubbing, cyanosis or edema, no calf tenderness and no pedal edema Neuro: SENSORIUM/ORIENTATION: Yes oriented to person, Yes oriented to place and Yes oriented to time Skin: COMMON NORMALS: no rashes or lesions noted GENERAL SKIN EXAM: no rashes or lesions noted Course Vital Signs: Vital signs: Vital Signs Temperature 97.6 F 09/10/21 04:00 Pulse Rate 55 L 09/10/21 04:00 Respiratory Rate 17 09/10/21 04:00 Blood Pressure 99/59 09/10/21 04:00 Pulse Oximetry 98 09/10/21 04:00 MDM - Eye Problem MDM Narrative: Medical decision making narrative: CT of the head and neck was done. The test got out first it was done of the neck and then they brought the patient back and did the head portion. Had reviewed the initial report and then the head portion came back later radiology called they had noted a occlusion of the P3 segment of the left posterior cerebellar artery. I had already talked to the patient and I had discussed the case with Dr. Ramírez. His vision was improving in that eye and on follow-up exam after the work-up was completed he was now able to read smaller print on my name badge than he had when he first came in. Is ESR and CRP were normal. Was felt it was likely a retinal branch artery occlusion timeframe was beyond what Dr. Ramírez felt we could do anything and he agreed with initiating Eliquis. We had a discussion about starting Eliquis with the patient also long discussion about his A. fib and what else he should do for that. We received the report on the inclusion of the P3 segment we contacted the patient with shortly after he left he came back and recommended that we admit him and work-up as a new stroke. When he returned he had noted that he was still continuing to improve. Discussed with Dr. Cat orders written. Patient will need further evaluation including echocardiogram MRI of the head also will need to see cardiology to look at different options for rate control. Lab Data: Labs: Lab Results 09/09/21 09/09/21 09/09/21 17:30 17:30 17:30 WBC 6.8 10^3/uL 10^3/ uL (4.0-10.0) RBC 4.43 10^6/uL 10^6 /uL (4.1-5.3) Hgb 13.3 g/dL g/dL (11.7-16.6) Hct 39.1 % L % (42.0-52.0) MCV 88.3 fl fl (80-94) MCH 30.0 pg pg (28.0-34.0) MCHC 34.0 g/dL g/dL (30.0-36.0) RDW 12.6 % % (12.1-15.1) Plt Count 233 10^3/cmm 10^3 /cmm (130-400) MPV 9.9 fL fL (7.4-10.4) Neut % (Auto) 61.8 % % Lymph % (Auto) 22.7 % % [place] % (Auto) 9.7 % % Eos % (Auto) 5.0 % % Baso % (Auto) 0.7 % % Neut # (Auto) 4.21 10^3/uL 10^3 /uL (1.8-7.7) Lymph # (Auto) 1.6 10^3/uL 10^3/ uL (0.8-4.8) [place] # (Auto) 0.7 10^3/uL 10^3/ uL (0.2-0.9) Eos # (Auto) 0.3 10^3/uL 10^3/ uL (0.0-0.8) Baso # (Auto) 0.1 10^3/uL 10^3/ uL (0.0-0.1) Nucleated RBC % (a uto) 0 % % Nucleated RBCs # 0.0 /100WBC /100W BC ESR 5 mm/hr mm/hr (0-10) Sodium 137 mmol/L mmol/L (136-145) Potassium 4.0 mmol/L mmol/L (3.5-5.1) Chloride 102 mmol/L mmol/L (98-107) Carbon Dioxide 22 mmol/L mmol/L (22-29) Anion Gap 17.0 (5-19) BUN 14 mg/dL mg/dL (8-23) Creatinine 1.1 mg/dL mg/dL (0.7-1.2) GFR Calculation 68.1 mL/min L mL/ min (90-130) Glucose 102 mg/dL mg/dL (65-115) Estimat Average Gl ucose 137 Hemoglobin A1c 6.4 % H % (4.0-6.0) Calculated Osmolal ity 285 mOsm/kg mOsm/ kg (285-295) Calcium 8.4 mg/dL L mg/dL (8.5-10.5) Total Bilirubin 0.4 mg/dL mg/dL (0.15-1.2) AST 13 U/L U/L (0-40) ALT 15 U/L U/L (0-41) Alkaline Phosphata se 75 IU/L IU/L (40-130) C-Reactive Protein 1.2 mg/L mg/L (0.0-4.9) Total Protein 7.0 g/dL g/dL (6.6-8.7) Albumin 4.0 g/dL g/dL (3.5-5.2) Globulin 3.0 g/dL g/dL (1.3-4.6) Triglycerides Cholesterol LDL Cholesterol, C alc HDL Cholesterol LDL/HDL Ratio Cholesterol/HDL Ra haroon 09/09/21 17:30 WBC RBC Hgb Hct MCV MCH MCHC RDW Plt Count MPV Neut % (Auto) Lymph % (Auto) [place] % (Auto) Eos % (Auto) Baso % (Auto) Neut # (Auto) Lymph # (Auto) [place] # (Auto) Eos # (Auto) Baso # (Auto) Nucleated RBC % (a uto) Nucleated RBCs # ESR Sodium Potassium Chloride Carbon Dioxide Anion Gap BUN Creatinine GFR Calculation Glucose Estimat Average Gl ucose Hemoglobin A1c Calculated Osmolal ity Calcium Total Bilirubin AST ALT Alkaline Phosphata se C-Reactive Protein Total Protein Albumin Globulin Triglycerides 219 mg/dL H mg/dL (0-150) Cholesterol 180 mg/dL mg/dL (0-200) LDL Cholesterol, C alc 109 mg/dL mg/dL (50-129) HDL Cholesterol 27 mg/dL L mg/dL (60-100) LDL/HDL Ratio 4.04 RATIO H RATI O (0.00-3.22) Cholesterol/HDL Ra haroon 6.67 mg/dL H mg/d L (1.0-5.00) Discharge Plan Discharge Patient Disposition: Admitted As Inpatient Admit Provider: Leslie Cat Clinical Impression: Acute CVA (cerebrovascular accident), Retinal arterial branch occlusion, Atrial fibrillation Condition: Stable Coding Level of Care Code ED Mental Health Social Worker for Chg Fwd NIH stroke score NIHSS Level Of Consciousness - 1a: 0 Level Of Consciousness Questions - 1b: Both Correct Level Of Consciousness Commands - 1c: Both Correct Best Gaze - 2: Normal Visual Rojas - 3: Partial Hemianopia Facial Palsy - 4: Normal Motor Arm Right - 5: No Drift Motor Arm Left - 5: No Drift Motor Leg Right - 6: No Drift Motor Leg Left - 6: No Drift Limb Ataxia - 7: Absent Sensory - 8: Normal Best Language - 9: No Aphasia Dysarthia - 10: Normal Extinction And Inattention - 11: 0 Score Total Score: 1
--- NOTE | 2021-09-09 16:38 | CTR_ITS ---
PROCEDURE INFORMATION: Exam: CT Head Without Contrast Exam date and time: 09/09/2021 4:38 PM Age: 60 years old Clinical indication: Visual disturbance; Patient HX: RT eye vision loss; Additional info: Acute neurodeficiet TECHNIQUE: Imaging protocol: Computed tomography of the head without contrast. COMPARISON: No relevant prior studies available. RADIATION DOSE METRICS: Total DLP (mGy-cm): 1045.42 FINDINGS: Brain: The brain is unremarkable. There is no mass effect or significant white matter disease. There is no acute intracranial hemorrhage. Cerebral ventricles: There is no significant ventricular dilation. The basal cisterns are unremarkable. Paranasal sinuses: Mucosal thickening in the left frontal sinus. There is no fluid in the paranasal sinuses to suggest acute sinusitis. Mastoid air cells: The mastoid air cells are clear. Bones/joints: The calvarium is intact. Soft tissues: The visible extracranial soft tissues are unremarkable. CT/CT head wo con* [id number] IMPRESSION: No acute intracranial abnormality.
--- NOTE | 2021-09-09 16:43 | CTR_ITS ---
PROCEDURE INFORMATION: Exam: CT Angiography Head With Contrast, Arteriography Exam date and time: 09/09/2021 4:43 PM Age: 60 years old Clinical indication: Visual disturbance; Sudden visual loss; Patient HX: Sudden right eye vision loss, no injury, no pain TECHNIQUE: Imaging protocol: Computed tomography angiography of the head with contrast. Exam focused on the arteries. 3D rendering (Not supervised by radiologist): MIP and/or 3D reconstructed images were created by the technologist. Radiation optimization: All CT scans at this facility use at least one of these dose optimization techniques: automated exposure control; mA and/or kV adjustment per patient size (includes targeted exams where dose is matched to clinical indication); or iterative reconstruction. Contrast material: VISI 320; Contrast volume: 95 ml; Contrast route: INTRAVENOUS (IV); COMPARISON: CT head wo con* [id number] 09/09/2021 4:44 PM RADIATION DOSE METRICS: Total DLP (mGy-cm): 621.58 FINDINGS: ANTERIOR CIRCULATION: Right internal carotid artery: There is mild atherosclerotic disease in the cavernous portion of the right internal carotid artery without significant stenosis. Right middle cerebral artery: Unremarkable. No occlusion or significant stenosis. No aneurysm. Right anterior cerebral artery: Unremarkable. No occlusion or significant stenosis. No aneurysm. Left internal carotid artery: There is mild atherosclerotic disease in the cavernous portion of the left internal carotid artery without significant stenosis. Left middle cerebral artery: Unremarkable. No occlusion or significant stenosis. No aneurysm. Left anterior cerebral artery: Unremarkable. No occlusion or significant stenosis. No aneurysm. POSTERIOR CIRCULATION: Right vertebral artery: The right vertebral artery is hypoplastic and does not contribute to the basilar artery. Left vertebral artery: Unremarkable. No occlusion or significant stenosis. No aneurysm. Basilar artery: Unremarkable. No occlusion or significant stenosis. No aneurysm. Right posterior cerebral artery: origin of the right posterior cerebral artery. No occlusion or aneurysm. Left posterior cerebral artery: There is occlusion of the left posterior cerebral artery at the level of the tentorial margin (P3 segment). See coronal series 601, image 36 and 34. See also axial series 4 image 54 through 57. Veins: Dural venous sinuses are patent. Brain: No definite mass, mass effect, or midline shift. Cerebral ventricles: No ventriculomegaly. Bones/joints: Unremarkable. No acute fracture. Soft tissues: Unremarkable.
[2021-09-09 17:41] LABS: Basophils # 0.1 10^3/uL (0.0-0.1); Basophils % 0.7 %; Eosinophils # 0.3 10^3/uL (0.0-0.8); Hematocrit 39.1 % (42.0-52.0); Hemoglobin 13.3 g/dL (11.7-16.6); Lymphocytes # 1.6 10^3/uL (0.8-4.8); Lymphocytes % 22.7 %; Mean Corpuscular Volume 88.3 fl (80-94); Mean Platelet Volume 9.9 fL (7.4-10.4); Monocytes # 0.7 10^3/uL (0.2-0.9); Monocytes % 9.7 %; Neutrophils # 4.21 10^3/uL (1.8-7.7); Neutrophils % 61.8 %; Nucleated Red Blood Cells % 0 %; Platelet Count 233 10^3/cmm (130-400); Red Blood Count 4.43 10^6/uL (4.1-5.3); Red Cell Distribution Width 12.6 % (12.1-15.1); White Blood Count 6.8 10^3/uL (4.0-10.0)
[2021-09-09 17:53] LABS: Erythrocyte Sedimentation Rate 5 mm/hr (0-10)
[2021-09-09 18:04] LABS: Alanine Aminotransferase 15 U/L (0-41); Alkaline Phosphatase 75 IU/L (40-130); Aspartate Amino Transferase 13 U/L (0-40); Blood Urea Nitrogen 14 mg/dL (8-23); C Reactive Protein 1.2 mg/L (0.0-4.9); Calcium 8.4 mg/dL (8.5-10.5); Carbon Dioxide 22 mmol/L (22-29); Chloride 102 mmol/L (98-107); Glomerular Filtration Rate 68.1 mL/min (90-130); Glucose 102 mg/dL (65-115); Osmolality Calculated 285 mOsm/kg (285-295); Sodium 137 mmol/L (136-145); Total Bilirubin 0.4 mg/dL (0.15-1.2)
[2021-09-09] MEDS: iodixanol 320 mg/mL 100mL Btl IV ×2 (18:23→18:27)
--- NOTE | 2021-09-09 19:24 | PC.NURSE ---
PT. I.V. removed and patient discharged home. received call about his scan and wants patient to return to be further evaluated.
[2021-09-09] MEDS: acetaminophen 325 mg Tablet 650 MG PO (23:10)
[2021-09-09 23:24] VITALS: PULSE 52
[2021-09-10] VITALS (8 sets, daily range): BP systolic 99–143; BP diastolic 59–80; PULSE 53–75; RESP 16–18; TEMP 36.4–36.7; O2SAT 92–98
--- NOTE | 2021-09-10 00:03 | ECG_ITS ---
[facility] Test Date: 2021-09-10 Pat Name: Terrell Hatfield Department: Room: 263 Gender: Male Psychological Tests Sales Agent: : 1960 Requested By: Leslie Cat Order Number: [id number] John MD: Omar Finnegan M.D. Measurements Intervals [place] Rate: 57 P: 50 [place]: 197 QRS: -7 QRSD: 129 T: 34 QT: 424 QTc: 416 Interpretive Statements SINUS BRADYCARDIA PROBABLE LATERAL MYOCARDIAL INFARCTION , PROBABLY OLD [35 ms Q WAVE IN I/aVL/V5/V6] Compared to ECG 01/23/2020 19:46:21 Myocardial infarct finding now present Atrial fibrillation no longer present T-wave abnormality no longer present Electronically Signed On 09-10-2021 10:50:31 ENERGY ANALYST by Omar Finnegan M.D. [id number]
--- NOTE | 2021-09-10 00:09 | P.HP_ITS ---
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 Presents today with acute onset of right side visual disturbance starting at ~2:30pm this afternoon. While working he expeiernced sudden loss of vision in right eye described as black out . Since then waxing and waning vision in right eye with robert visual field defect. NIHSS at presentation at ER noted to be 1, not a candidate for tPA. CT head and CTA head done which showed occlusion in p3 segment. Patient takes ASA 325mg at home. Review of Systems General: Reports: 10 or more systems reviewed and unremarkable except in HPI and below Const: Denies: fever(s), chills or body aches Eyes: Denies: change in vision, blurry vision or photophobia ENMT: Reports: hoarseness; Denies: throat pain, enlarged tonsils, odynophagia or nasal congestion Card: Denies: chest pain, palpitations, irregular heart rhythm, edema, swelling of feet/ankles, lightheadedness, pre-syncope, dyspnea on exertion or orthopnea Resp: Denies: dyspnea, productive cough, non-productive cough, wheezing, stridor, pain on inspiration, change in phlegm color, hemoptysis or chest congestion GI: Denies: abdominal pain, nausea, vomiting, hematemesis, coffee ground emesis, dysphagia, heartburn, diarrhea, constipation, GI cramping, change in stool character, hematochezia or melena : Denies: flank pain, dysuria, urinary frequency, urinary urgency, urinary hesitancy or hematuria Musc: Denies: neck pain, back pain, extremity pain, joint swelling, joint warmth or deformity Neuro: Denies: headache(s), numbness in extremities, weakness in extremities, sensory changes, difficulty walking, frequent falls, dizziness, vertigo, behavioral changes, Slurred speech present or seizure-like activity Psych: Denies: anxiety, depression, suicidal ideation or homicidal ideation Endo: Denies: polyuria, polydipsia, tired all the time, cold intolerance or hot flashes Teddy/Lymph: Denies: easy bruising or easy bleeding Medications/Allergies Home Medications Medication Instructions Recorded Confirmed Last Taken Type atorvastatin 80 mg tablet See Rx Instructions .ROUTE 03/04/21 03/16/21 Unknown Rx .COMPLEX #90 tab azilsartan medoxomil 40 See Rx Instructions .ROUTE 03/04/21 03/16/21 Unknown Rx mg-chlorthalidone 12.5 mg tablet .COMPLEX #90 tab buspirone 10 mg tablet 10 mg PO BID #180 tab 03/04/21 03/16/21 Unknown Rx celecoxib 200 mg capsule 200 mg PO BID #180 cap 03/04/21 03/16/21 Unknown Rx omeprazole magnesium 20 mg 20 mg PO DAILY 03/04/21 03/16/21 Unknown History tablet,delayed release paroxetine HCl 40 mg tablet See Rx Instructions .ROUTE 03/04/21 03/16/21 Unknown Rx .COMPLEX #90 tab Auto C-PAP 5-20 cm H2O #1 ea 04/29/21 Unknown Rx sotalol 120 mg tablet See Rx Instructions .ROUTE 06/02/21 Unknown Rx .COMPLEX #30 tab apixaban [Eliquis] 5 mg PO BID #60 tab 09/09/21 Unknown Rx Allergies Allergy/AdvReac Type Severity Reaction Status Date / Time amlodipine Allergy Unknown ALGY-Swell Verified 03/16/21 15:28 Lip/Tongue/Throat PFSH Acute PFSH: Medical History (Updated 09/10/21 @ 06:35 by Leslie Cat MD) Anxiety Atrial fibrillation Hypertension Mixed hyperlipidemia Sick sinus syndrome due to sinoatrial node dysfunction Surgical History History of coronary angioplasty 2016 in [place], [place] History of extraction of renal calculus Family History Other Cancer Diabetes Heart disease Social History Smoking and tobacco status: former smoker Second hand smoke exposure: No Smoking risk assessment/counseling performed?: No Alcohol intake: current Alcohol intake frequency: holidays/special occasions only Desire information about alcohol rehabilitation?: No Counseling given: No Desire information about substance/drug rehabilitation?: No Counseling given: No History of recent travel: No Current gender identity: Male Vitals/I&O/Wt Last Vital Signs Temp 98.4 F 09/09/21 16:26 Pulse 52 L 09/09/21 23:24 Resp 16 09/09/21 16:26 BP 131/81 09/09/21 16:26 Pulse Ox 96 09/09/21 16:26 09/09/21 09/09/21 09/10/21 14:59 22:59 06:59 Intake Total 240 / 240 Balance 240 / 240 Weight last 48 hrs Weight 108.862 kg Physical Exam Narrative: EXAM NARRATIVE: General: No acute distress, AO x3 HEENT: PERRLA, pupils bilaterally equal and reactive, pallors not present Chest: Normal vesicular breath sounds, no added sounds, equal good air entry bilaterally CVS: S1-S2 regular, no murmurs, no tachycardia, no gallops, no rubs Abdomen: Soft, nontender, no organomegaly, bowel sounds present Neuro: No focal deficits, no facial deformity, AO x3, power 5/5 in all limbs Data : 09/09/21 17:30 09/09/21 17:30 Other Labs: Laboratory Results WBC 6.8 10^3/uL (4.0-10.0) 09/09/21 17:30 RBC 4.43 10^6/uL (4.1-5.3) 09/09/21 17:30 Hgb 13.3 g/dL (11.7-16.6) 09/09/21 17:30 Hct 39.1 % (42.0-52.0) L 09/09/21 17:30 MCV 88.3 fl (80-94) 09/09/21 17:30 MCH 30.0 pg (28.0-34.0) 09/09/21 17:30 MCHC 34.0 g/dL (30.0-36.0) 09/09/21 17:30 RDW 12.6 % (12.1-15.1) 09/09/21 17:30 Plt Count 233 10^3/cmm (130-400) 09/09/21 17:30 MPV 9.9 fL (7.4-10.4) 09/09/21 17: Neut % (Auto) 61.8 % 09/09/21 17:30 Lymph % (Auto) 22.7 % 09/09/21 17:30 [place] % (Auto) 9.7 % 09/09/21 17:30 Eos % (Auto) 5.0 % 09/09/21 17:30 Baso % (Auto) 0.7 % 09/09/21 17:30 Neut # (Auto) 4.21 10^3/uL (1.8-7.7) 09/09/21 17:30 Lymph # (Auto) 1.6 10^3/uL (0.8-4.8) 09/09/21 17:30 [place] # (Auto) 0.7 10^3/uL (0.2-0.9) 09/09/21 17:30 Eos # (Auto) 0.3 10^3/uL (0.0-0.8) 09/09/21 17:30 Baso # (Auto) 0.1 10^3/uL (0.0-0.1) 09/09/21 17:30 Nucleated RBC % (auto) 0 % 09/09/21 17:30 Nucleated RBCs # 0.0 /100WBC 09/09/21 17:30 ESR 5 mm/hr (0-10) 09/09/21 17:30 Sodium 137 mmol/L (136-145) 09/09/21 17:30 Potassium 4.0 mmol/L (3.5-5.1) 09/09/21 17:30 Chloride 102 mmol/L (98-107) 09/09/21 17:30 Carbon Dioxide 22 mmol/L (22-29) 09/09/21 17:30 Anion Gap 17.0 (5-19) 09/09/21 17:30 BUN 14 mg/dL (8-23) 09/09/21 17:30 Creatinine 1.1 mg/dL (0.7-1.2) 09/09/21 17:30 GFR Calculation 68.1 mL/min (90-130) L 09/09/21 17:30 Glucose 102 mg/dL (65-115) 09/09/21 17:30 Estimat Average Glucose 137 09/09/21 17:30 Hemoglobin A1c 6.4 % (4.0-6.0) H 09/09/21 17:30 Calculated Osmolality 285 mOsm/kg (285-295) 09/09/21 17:30 Calcium 8.4 mg/dL (8.5-10.5) L 09/09/21 17:30 Total Bilirubin 0.4 mg/dL (0.15-1.2) 09/09/21 17:30 AST 13 U/L (0-40) 09/09/21 17:30 ALT 15 U/L (0-41) 09/09/21 17:30 Alkaline Phosphatase 75 IU/L (40-130) 09/09/21 17:30 C-Reactive Protein 1.2 mg/L (0.0-4.9) 09/09/21 17:30 Total Protein 7.0 g/dL (6.6-8.7) 09/09/21 17:30 Albumin 4.0 g/dL (3.5-5.2) 09/09/21 17:30 Globulin 3.0 g/dL (1.3-4.6) 09/09/21 17:30 Triglycerides 219 mg/dL (0-150) H 09/09/21 17:30 Cholesterol 180 mg/dL (0-200) 09/09/21 17:30 LDL Cholesterol, Calc 109 mg/dL (50-129) 09/09/21 17:30 HDL Cholesterol 27 mg/dL (60-100) L 09/09/21 17:30 LDL/HDL Ratio 4.04 RATIO (0.00-3.22) H 09/09/21 17:30 Cholesterol/HDL Ratio 6.67 mg/dL (1.0-5.00) H 09/09/21 17:[address] 09/09/21 16:38 IMPRESSION: No acute intracranial abnormality. Head/Neck CTA 09/09/21 16:43 IMPRESSION: Occlusion of the P3 segment of the left posterior cerebral artery. ADDENDUM: 09/09/211920 THIS REPORT CONTAINS FINDINGS THAT MAY BE CRITICAL TO PATIENT CARE. The findings were verbally communicated via telephone conference with BRANDEE KIDD at 7:19 PM STATUARY PAINTER on 09/09/2021. The findings were acknowledged and understood. A&P Assessment and plan (1) Atrial fibrillation: Status: Acute (2) Stroke: Status: Acute Additional A&P Information Presenting with Acute CVA of the p3 segment with visual defects in right eye which are waxing and waning at this time. Not a candidate for tPA on presentation Has not previously been on a/c with h/o A fib due to profession, amenbale to starting now For now will continue with ASA , reduce dose to 81mg daily as anticipate starting a/c continue atorvastatin 80mg po daily echocardiogram Will additionally likely start eliquis however will start ~48 hrs after and obtain MRI first to r/o any hemorrhagic transformation Currently rhythm is sinus bradycardia with HR 50s, patient states sotalol has been titrated down as outpatient due to bradycardia. Holding sotalol for now cardiology consult Attestations Medical Necessity Statement*: anticipate less than 2 midnight admission for above care, MRI Coding Level of Care Code Acute Sales And Merchandising Associate for Herbert Fisher Diagnoses Atrial fibrillation I48.91 Stroke I63.9
[2021-09-10 01:19] LABS: Chol HDL Ratio 6.67 mg/dL (1.0-5.00); Cholesterol 180 mg/dL (0-200); HDL Cholesterol 27 mg/dL (60-100); LDL Cholesterol Calculated 109 mg/dL (50-129); LDL HDL Ratio 4.04 RATIO (0.00-3.22); Triglycerides 219 mg/dL (0-150)
[2021-09-10 01:54] LABS: Estmated Average Glucose 137; Hemoglobin A1C 6.4 % (4.0-6.0)
[2021-09-10] MEDS: acetaminophen 325 mg Tablet 650 MG PO ×3 (07:51→20:14)
[2021-09-10] MEDS: aspirin 81 mg EC Tablet PO (08:00)
[2021-09-10] MEDS: PARoxetine 20 mg Tablet 40 MG PO (08:00)
[2021-09-10] MEDS: pantoprazole DR 40 mg Tablet PO (08:01)
[2021-09-10] MEDS: BuSPIRONE 10 mg Tablet PO ×2 (08:01→17:04)
--- NOTE | 2021-09-10 10:10 | MR_ITS ---
WS: [id number] MRI HEAD WITHOUT CONTRAST TECHNIQUE: Sagittal T1, T2 axial, T2 axial FLAIR, axial and coronal T1 images, axial susceptibility w eighted imaging, axial diffusion weighted images, and coronal T2 images were obtained. CLINICAL INFORMATION: posterior circulation stroke COMPARISON: CTA September 09, 2021 FINDINGS: Tiny focus of restricted diffusion within the left parietal cortex measuring 4 mm. No significant und erlying edema. Findings compatible with a small area of acute ischemia. No other foci of restricted d iffusion. Minimal small vessel changes. Mild parenchymal volume loss. Normal posterior fossa. Normal vascular f low voids at the skull base. No extra-axial fluid collections. No evidence of mass or mass effect. Mild mucosal thickening in the paranasal sinuses. Mastoid air cells well aerated. Normal optic chiasm and pituitary infundibulum. Temporal lobes and hippocampal formations are normal in appearance. No o ther significant findings. MR/MR head wo con* [id number] IMPRESSION: 1. Tiny focus of acute ischemia within the left parietal occipital junction at the posterior cortex measuring 4 mm corresponding to the distal left [place] occlu marleen on the CTA. No other foci of acute ischemia. 2. Minimal small vessel changes. Mild parenchymal volume loss. 3. No extra-axial fluid collections. No evidence of mass or mass effect. 4. No hemosiderin on susceptibly weighted images. 5. No other significant findings. Notified Paramjit Arevalo MD at 09/10/2021 12:57 PM.
--- NOTE | 2021-09-10 10:17 | P.CONIM_ITS ---
Providers/Reason For Consult Consulting Physician/Specialty*: Omar Finnegan MD/ Cardiology Reason for Consult*: Stoke/atrial fibrillation medication management Requesting Physician: Dr Cat Attending Physician: Paramjit Arevalo MD Primary Care Provider: DERREK ValentinoP-C History of Present Illness History of Present Illness Terrell Hatfield is a 60 year old male with past medical history of atrial fibrillation, hypertension who is not on anticoagulation (on aspirin 325 mg daily )has presented with acute visual disturbance in the right eye that started yesterday afternoon. It has improved significantly now. He was not a TPA candidate. CTA head showed occlusion in P3 segment. Patient used to take sotalol 60 mg twice daily. He is staying bradycardic. EKG performed in the hospital shows sinus bradycardia with heart rate of 57 bpm. Review of Systems General: Reports: 10 or more systems reviewed and unremarkable except in HPI and below Const: Denies: fever(s), chills or body aches Eyes: Reports: change in vision; Denies: blurry vision or photophobia ENMT: Reports: hoarseness; Denies: throat pain, enlarged tonsils, odynophagia or nasal congestion Card: Denies: chest pain, palpitations, irregular heart rhythm, edema, swelling of feet/ankles, lightheadedness, pre-syncope, dyspnea on exertion or orthopnea Resp: Denies: dyspnea, productive cough, non-productive cough, wheezing, stridor, pain on inspiration, change in phlegm color, hemoptysis or chest congestion GI: Denies: abdominal pain, nausea, vomiting, hematemesis, coffee ground emesis, dysphagia, heartburn, diarrhea, constipation, GI cramping, change in stool character, hematochezia or melena : Denies: flank pain, dysuria, urinary frequency, urinary urgency, urinary hesitancy or hematuria Musc: Denies: neck pain, back pain, extremity pain, joint swelling, joint warmth or deformity Neuro: Denies: headache(s), numbness in extremities, weakness in extremities, sensory changes, difficulty walking, frequent falls, dizziness, vertigo, behavioral changes, Slurred speech present or seizure-like activity Psych: Denies: anxiety, depression, suicidal ideation or homicidal ideation Endo: Denies: polyuria, polydipsia, tired all the time, cold intolerance or hot flashes Teddy/Lymph: Denies: easy bruising or easy bleeding Meds/Allergies Home Medications and Allergies Home Medications Medication Instructions Recorded Confirmed Last Taken Type buspirone 10 mg tablet 10 mg PO BID #180 tab 03/04/21 09/10/21 09/09/21 Rx Auto C-PAP 5-20 cm H2O #1 ea 04/29/21 09/10/21 Unknown Rx apixaban [Eliquis] 5 mg PO BID #60 tab 09/09/21 Unknown Rx [id number] 2 tab PO Q6H PRN 09/10/21 09/10/21 Unknown History [Excedrin Migraine] atorvastatin [Lipitor] 80 mg PO DAILY 09/10/21 09/10/21 Unknown History azilsartan med-chlorthalidone 1 tab PO QAM 09/10/21 09/10/21 Unknown History [Edarbyclor] celecoxib 200 mg PO BID PRN 09/10/21 09/10/21 Unknown History paroxetine HCl [Paxil] 40 mg PO DAILY 09/10/21 09/10/21 Unknown History sotalol 60 mg PO BID 09/10/21 09/10/21 Unknown History Allergies Allergy/AdvReac Type Severity Reaction Status Date / Time amlodipine Allergy Unknown ALGY-Swell Verified 09/10/21 08:39 Lip/Tongue/Throat Current Medications Current Medications Generic Name Dose Route Start Last Admin Trade Name Freq PRN Reason Stop Dose Admin Acetaminophen 650 mg 09/09/21 23:04 09/10/21 07:51 Acetaminophen 325 Mg Tablet PO 650 mg Q4H PRN Administration MILD PAIN OR INCREASE TEMP Aspirin 81 mg 09/10/21 09:00 09/10/21 08:00 Aspirin 81 Mg Ec Tablet PO 81 mg DAILY LUCINDA Administration Buspirone HCl 10 mg 09/10/21 09:00 09/10/21 08:01 Buspirone 10 Mg Tablet PO 10 mg BID LUCINDA Administration Pantoprazole Sodium 40 mg 09/10/21 09:00 09/10/21 08:[address] 40 Mg Tablet PO 40 mg DAILY LUCINDA Administration Paroxetine HCl 40 mg 09/10/21 09:00 09/10/21 08:00 Paroxetine 20 Mg Tablet PO 40 mg DAILY LUCINDA Administration PFSH Acute PFSH: Medical History Anxiety Atrial fibrillation Hypertension Mixed hyperlipidemia Sick sinus syndrome due to sinoatrial node dysfunction Surgical History History of coronary angioplasty 2016 in [place], [place] History of extraction of renal calculus Family History Other Cancer Diabetes Heart disease Social History Smoking and tobacco status: former smoker Second hand smoke exposure: No Smoking risk assessment/counseling performed?: No Alcohol intake: current Alcohol intake frequency: holidays/special occasions only Desire information about alcohol rehabilitation?: No Counseling given: No Desire information about substance/drug rehabilitation?: No Counseling given: No History of recent travel: No Current gender identity: Male Vitals/I&O/Wt Last Vital Signs Temp 97.9 F 09/10/21 07:33 Pulse 54 L 09/10/21 07:33 Resp 16 09/10/21 07:33 BP 100/64 09/10/21 07:33 Pulse Ox 95 09/10/21 07:33 09/09/21 09/10/21 09/10/21 22:59 06:59 14:59 Intake Total 680 / 680 Balance 680 / 680 Weight last 48 hrs Weight 240 lb Physical Exam Narrative: EXAM NARRATIVE: GENERAL: Patient is alert, awake and oriented x3. [] NECK: No jugular vein distension. [] HEENT: No cyanosis. No icterus. No pallor. [] HEART: Regular S1 and S2. No murmur, rub or gallop. [] LUNGS: Clear to auscultate bilaterally. [] ABDOMEN: Soft, nontender and nondistended. Positive bowel sounds. No guarding, rebound or tenderness. [] CENTRAL NERVOUS SYSTEM: Grossly nonfocal. [] EXTREMITIES: Lower extremities with no edema bilaterally. Pulses palpable in the lower extremities, both dorsalis pedis and posterior tibial. [] A&P Assessment and plan (1) Stroke: Status: Acute (2) Atrial fibrillation: Status: Acute (3) Type 2 diabetes mellitus: Status: Acute Qualifiers: Diabetes mellitus longterm insulin use: without longterm use Diabetes mellitus complication status: without complication Qualified Code(s): E11.9 - Type 2 diabetes mellitus without complications (4) Hypertension: Status: Chronic Qualifiers: Hypertension type: essential hypertension Qualified Code(s): I10 - Essential (primary) hypertension Patient has history of atrial fibrillation and was not on anticoagulation and has now presented with stroke. Will need anticoagulation for future stoke prevention. Start once appropriate per neurology/medicine recommendations Restart sotalol at lower dose of 40 mg twice daily once anticoagulation is started. At time of discharge can order 14-day event monitor to determine bradycardic episodes on sotalol. Thank you for involving us with care of this patient. Please call with questions. 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
--- NOTE | 2021-09-10 12:43 | P.PN_ITS ---
Subjective Subjective: Interval history: Patient tells me that his vision is back to normal, no nausea, no vomiting, no balance issues, no trouble swallowing, no paresthesias, no weakness Vitals/I&O/Wt Last Vital Signs Temp 97.9 F 09/10/21 07:33 Pulse 54 L 09/10/21 07:33 Resp 16 09/10/21 07:33 BP 100/64 09/10/21 07:33 Pulse Ox 95 09/10/21 07:33 09/09/21 09/10/21 09/10/21 22:59 06:59 14:59 Intake Total 680 / 680 Balance 680 / 680 Weight last 48 hrs Weight 108.862 kg Physical Exam Const: COMMON NORMALS: no acute distress, patient oriented x3 and alert ORIENTATION/CONSCIOUSNESS: Yes oriented to person and Yes oriented to place Eye: COMMON NORMALS: Equal, round and reactive pupils present and EOMs intact bilaterally PUPIL: Yes Equal, round and reactive pupils present Resp: COMMON NORMALS: normal respiratory effort, No retractions, No use of accessory muscles and clear to auscultation bilaterally AUSCULTATION: clear to auscultation bilaterally Cardio: COMMON NORMALS: regular rate, regular rhythm, S1 normal heart sound present and S2 normal heart sound present RATE: regular rate RHYTHM: regular rhythm HEART SOUNDS: S1 normal heart sound present and S2 normal heart sound present GI: COMMON NORMALS: Normal to inspection, nondistended, normoactive bowel sounds present, Soft to palpation and non-tender PALPATION: Yes Soft to palpation Extremity: COMMON NORMALS: no pedal edema Neuro: COMMON NORMALS: patient oriented x3, CN's II-XII intact bilaterally, moves all extremities, no focal motor deficits and no sensory deficits noted SENSORIUM/ORIENTATION: Yes alert, Yes oriented to person and Yes oriented to place COORDINATION/BALANCE: [id number] test normal, Normal rapid alternating movements of the distal upper extremity present (Neuro) and Normal rapid alternating movements of the distal lower extremity present (Neuro) SPEECH: speech normal MOTOR EXAM: 5/5 motor strength present throughout COORDINATION: [id number]-hc-[id number] test normal, rapid alternating movement UE normal and rapid alternating movement LE normal OTHER: Visual field testing, no deficits bilaterally Psych: COMMON NORMALS: mental status grossly normal Data : 09/09/21 17:30 09/09/21 17:30 A&P Assessment and plan (1) Atrial fibrillation: Status: Acute (2) Stroke: Status: Acute (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 Not a candidate for tPA on presentation Has not previously been on a/c with h/o A fib due to profession, amenbale to starting now For now will continue with ASA , reduce dose to 81mg daily as anticipate starting a/c continue atorvastatin 80mg po daily echocardiogram PT OT, speech therapy consult Allow for permissive hypertension Telemetry monitoring Will additionally likely start eliquis however will start ~48 hrs after and obtain MRI first to r/o any hemorrhagic transformation Currently rhythm is sinus bradycardia with HR 50s, patient states sotalol has been titrated down as outpatient due to bradycardia. 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
--- NOTE | 2021-09-10 13:30 | PC.CHAP ---
Pastoral Care Encounter/Spiritual Assessment Type of Contact [] Declined lubrication servicer visit [] Patient/Family/Request visit [] Outpatient visit [] Follow-up visit [] Physician referral [] Code/Alert [] Routine visit [] Staff referral [] Actively dying [] Patient sleeping [] Family support [] [] Out of room [] Palliative care [] [] Receiving care in room [] Pre-surgical visit [] Trauma [] Long length of stay [] ICU visit [xx] Other: Isolation Relational/Emotional Strength [] Patient feels connected with others/family/visitors/staff [] Distress [] Loneliness/isolation [] Abandonment Spirituality of Patient [] Person of Gerri [] Attends Moravian of their Gerri [] Believes in Prayer [] Reads Bible or Yazdanism materials [] There are Spiritual issues to be addressed Mouthpiece Maker Interventions [] Prayer [] Active listening [] Non-anxious presence [] Spiritual/emotional support [] Crisis/trauma care [] Spiritual counseling [] Bereavement support [] Provided bereavement packet [] Provided Bible/devotional materials [] Provided toy/stuffed animal, coloring book to patient or family member [] Provided Communion [] Anointing/[place] [] Salvation [] Completed spiritual assessment [] Other: Impact on Illness or Injury [] Angry [] Fearful [] Anxious [] Often cries [] Exhaustion [] Unable to work [] Unable to attend judaism [] Unable to walk/stand [] Unable to read [] Unable to drive [] Unable to eat/drink [] Unable to sleep [] Unable to be with family [] Patient intubated [] Other: Summary Time spent with patient
[2021-09-10 13:44] LABS: Thyroid Stimulating Hormone 0.81 uIU/mL (0.27-4.20)
--- NOTE | 2021-09-10 15:49 | PC.OT ---
OT EVALUATION ORDERS RECEIVED. OT SCREEN COMPLETED. PATIENT DEMONSTRATES NO DEFICITS IN ADL/MRADL, OR VISION AT THIS TIME. NO FURTHER SKILLED OT REQUIRED AT THIS TIME.
[2021-09-10] MEDS: sodium chloride 0.9% 1,000 ML 75 ML IV (17:05)
[2021-09-10 17:34] LABS: Glucose Point of Care 134 mg/dL (70-110)
[2021-09-10] MEDS: atorvastatin 40 mg Tablet 80 MG PO (20:14)
--- NOTE | 2021-09-10 23:58 | USCV_ITS ---
Liu Terrell Age: 60 Gender: M : 1960 Exam Date: 09/10/2021 05:19 Ordering Phys: Leslie Cat MD Technologist: Tete Mercedes Exam Location: [facility] [place] Indication: CVA WITH LOSS OF RT SIDED VISION. IN AND OUT OF AFIB BP: 99 / 54 HR: 56 Rhythm: Sinus Technical Quality: Adequate MEASUREMENTS (Male / Female) Normal Values 2D ECHO LV Diastolic Diameter PLAX 4.8 cm 4.2 - 5.9 / 3.9 - 5.3 cm LV Systolic Diameter PLAX 2.8 cm LV Chamber Size 5.0 cm IVS Diastolic Thickness 1.6 cm 0.6 - 1.0 / 0.6 - 0.9 cm IVS Systolic Thickness 1.7 cm LVPW Diastolic Thickness 1.6 cm 0.6 - 1.0 / 0.6 - 0.9 cm LVPW Systolic Thickness 2.1 cm RV Chamber Size 3.5 cm LVOT Diameter 2.1 cm LV Ejection Fraction 2D Teich 73.9 % LV Ejection Fraction MOD 2C 63.0 % LV Ejection Fraction 2C AL 64.5 % LA Diameter 3.9 cm LA Width 2.8 cm LA Height 6.1 cm RA Width 4.6 cm RA Height 6.7 cm Aorta at Sinotubular Diameter 3.3 cm M-MODE Aortic Annulus Diameter 3.8 cm LA Ao Ratio MM 1.3 MV E Point Septal Separation 0.6 cm DOPPLER AV Peak Velocity 126.0 cm/s LVOT Peak Velocity 111.0 cm/s AV Area Cont Eq vti 2.8 cm squared AV Area Cont Eq pk 3.0 cm squared MV Area PHT 3.2 cm squared Mitral E to A Ratio 1.4 MV E' Velocity 43.5 cm/s Mitral E to MV E' Ratio 10.6 Mitral E to LV E' Lateral Ratio 10.3 Mitral E to LV E' Septal Ratio 10.9 TR Peak Velocity 245.4 cm/s TR Peak Gradient 24.1 mmHg TR Mean Velocity 198.7 cm/s TR Mean Gradient 16.8 mmHg TR Velocity Time Integral 83.9 cm TV Peak E Velocity 73.0 cm/s Right Atrial Pressure 3.0 mmHg Pulmonary Artery Systolic Pressu 27.1 mmHg PV Peak Velocity 76.0 cm/s RV Acceleration Time 0.1 s RV Ejection Time 0.3 s RV AcT/ET 0.4 FINDINGS Left Ventricle Normal left ventricular size and systolic function, EF 64 %. No regional wall motion abnormalities. Mild left ventricular hypertrophy. Right Ventricle The right ventricle is normal in size and function. Right Atrium The right atrium is normal in size. Left Atrium The left atrium is normal in size. Mitral Valve No gross abnormalities noted.trace mitral valve regurgitation. Aortic Valve No gross abnormalities noted Tricuspid Valve Trace tricuspid valve regurgitation. Pulmonic Valve Pulmonic valve not well visualized. Pericardium Normal pericardium without effusion. Aorta Normal ascending aorta dimension. CONCLUSIONS Normal left ventricular size and systolic function, EF 64 %. No regional wall motion abnormalities. Mild left ventricular hypertrophy. Trace of mitral and tricuspid regurgitation. Estimated pulmonary artery peak systolic pressure of 27 mmHg There is no pericardial effusion. There are no intracardiac masses. No previous study is available for comparison. Dr Debra Bob MD FACC (Electronically Signed) Final Date: 10 September 2021 13:49 S
[2021-09-11] VITALS: BP 137/81; PULSE 56; RESP 18; TEMP 36.7; O2SAT 97
[2021-09-11 04:00] VITALS: BP 123/76; PULSE 56; RESP 18; TEMP 36.8; O2SAT 96
[2021-09-11] MEDS: sodium chloride 0.9% 1,000 ML 75 ML IV (05:18)
[2021-09-11 06:05] LABS: Basophils # 0.1 10^3/uL (0.0-0.1); Basophils % 0.7 %; Eosinophils # 0.4 10^3/uL (0.0-0.8); Eosinophils % 5.1 %; Hematocrit 39.8 % (42.0-52.0); Hemoglobin 13.5 g/dL (11.7-16.6); Lymphocytes # 1.7 10^3/uL (0.8-4.8); Lymphocytes % 25.2 %; Mean Corpuscular HGB Conc 33.9 g/dL (30.0-36.0); Mean Corpuscular Hemoglobin 29.5 pg (28.0-34.0); Mean Corpuscular Volume 87.1 fl (80-94); Mean Platelet Volume 9.9 fL (7.4-10.4); Monocytes # 0.6 10^3/uL (0.2-0.9); Monocytes % 8.8 %; Neutrophils # 4.15 10^3/uL (1.8-7.7); Neutrophils % 60.1 %; Nucleated Red Blood Cells % 0 %; Platelet Count 231 10^3/cmm (130-400); Red Blood Count 4.57 10^6/uL (4.1-5.3); Red Cell Distribution Width 12.3 % (12.1-15.1); White Blood Count 6.9 10^3/uL (4.0-10.0)
[2021-09-11 06:19] VITALS: PULSE 56
[2021-09-11 07:34] VITALS: BP 125/77; PULSE 62; RESP 16; TEMP 36.6; O2SAT 97
[2021-09-11 08:08] LABS: Alanine Aminotransferase 10 U/L (0-41); Albumin Level 3.9 g/dL (3.5-5.2); Alkaline Phosphatase 73 IU/L (40-130); Anion Gap 18.7 (5-19); Aspartate Amino Transferase 13 U/L (0-40); Blood Urea Nitrogen 12 mg/dL (8-23); Calcium 8.4 mg/dL (8.5-10.5); Carbon Dioxide 19 mmol/L (22-29); Chloride 104 mmol/L (98-107); Glomerular Filtration Rate 85.8 mL/min (90-130); Glucose 104 mg/dL (65-115); Magnesium 1.9 mg/dL (1.7-2.3); Osmolality Calculated 286 mOsm/kg (285-295); Phosphorus 2.9 mg/dL (2.5-4.5); Potassium 3.7 mmol/L (3.5-5.1); Sodium 138 mmol/L (136-145); Total Bilirubin 0.6 mg/dL (0.15-1.2); Total Protein 6.9 g/dL (6.6-8.7)
[2021-09-11] MEDS: PARoxetine 20 mg Tablet 40 MG PO (09:10)
[2021-09-11] MEDS: BuSPIRONE 10 mg Tablet PO (09:11)
[2021-09-11] MEDS: apixaban 5 mg Tablet PO (09:11)
[2021-09-11] MEDS: aspirin 81 mg EC Tablet PO (09:11)
[2021-09-11] MEDS: pantoprazole DR 40 mg Tablet PO (09:11)
[2021-09-11] MEDS: acetaminophen 325 mg Tablet 650 MG PO (09:15)
[2021-09-11 11:35] VITALS: BP 126/79; PULSE 50; RESP 16; TEMP 36.6; O2SAT 94
[2021-09-11 11:47] LABS: Glucose Point of Care 128 mg/dL (70-110)
--- NOTE | 2021-09-11 12:17 | PM.DCS ---
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 (4) Controlled diabetes mellitus with hyperglycemia: Status: Chronic (5) Hypertension: Status: Chronic Qualifiers: Hypertension type: essential hypertension Qualified Code(s): I10 - Essential (primary) hypertension (6) Mixed hyperlipidemia: Status: Chronic Reason for Visit Reason for Visit: NO VISION IN R EYE/VERY SUDDEN Hospital Course Hospital Course This is a 60-year-old male with a past medical history of atrial fibrillation, on anticoagulation, hypertension, type 2 diabetes mellitus, who presents to [facility] due to sudden loss of vision in the right eye, NIH stroke scale on admission was TPA candidate -Head CT no acute intracranial abnormality -CTA head Occlusion of the P3 segment of the left posterior cerebral artery. -MRI 1. 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 No other foci of acute ischemia. 2. Minimal small vessel changes. Mild parenchymal volume loss. 3. No extra-axial fluid collections. No evidence of mass or mass effect. 4. No hemosiderin on susceptibly weighted images. 5. No other significant findings. -cardiac echo Normal left ventricular size and systolic function, EF 64 %. No regional wall motion abnormalities. Mild left ventricular hypertrophy. Trace of mitral and tricuspid regurgitation. Estimated pulmonary artery peak systolic pressure of 27 mmHg There is no pericardial effusion. There are no intracardiac masses. No previous study is available for comparison. 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, was monitored inpatient, allow for permissive hypertension, received IV fluids, his symptomatology resolved -Patient was monitored for 24 hours, anticoagulation was resumed after 24 hours, discharged on Eliquis 5 mg twice daily -Patient had episodes of sinus bradycardia, his sotalol was held, resume 40mg BID starting monday, discharged with event monitor, follow up with cardiology in 2 weeks -Patient was advised if you have recurrent lightheadedness dizziness go to emergency room -If he were to have any bloody or black stools go to emergency room -Patient also had complaints of density under the left nipple for the last 20 years, no nipple discharge, on exam he had a 2 x 2 centimeter density under the left nipple, he was supposed to follow-up with a mammogram, last few months but lost his insurance, he will follow-up as outpatient -In addition patient has a family history of colon cancer, his father in his 40s from colon cancer, he had a colonoscopy roughly 20 years ago, he is due for one -Type 2 diabetes mellitus, did advise of diet control, A1c is 6.4, discussed with primary care provider about Ozempic or Metformin about cardiovascular/neurologic/morbidity mortality benefit Physical Exam Const: COMMON NORMALS: no acute distress and patient oriented x3 Resp: COMMON NORMALS: normal respiratory effort, No retractions, No use of accessory muscles and clear to auscultation bilaterally AUSCULTATION: clear to auscultation bilaterally Cardio: COMMON NORMALS: regular rate, regular rhythm, S1 normal heart sound present and S2 normal heart sound present RATE: regular rate RHYTHM: regular rhythm HEART SOUNDS: S1 normal heart sound present and S2 normal heart sound present GI: COMMON NORMALS: Normal to inspection, nondistended, normoactive bowel sounds present, Soft to palpation and non-tender PALPATION: Yes Soft to palpation Extremity: COMMON NORMALS: no pedal edema Neuro: COMMON NORMALS: patient oriented x3 Psych: COMMON NORMALS: mental status grossly normal Discharge Data Data Completed and Pending: Completed Studies During Hospitalization Category Date Time Status CT angio head 704 96 Urgent Cat Scan 09/09/[address] angio neck 704 98 Stat Cat Scan 09/09/21 16:[address] head wo con* 7 0450 Stat Cat Scan 09/09/21 16:38 Completed MR head wo con* 7 0551 Stat MRI 09/10/21 10:10 Completed CV. echo complete * [id number] Routine Ultrasound 09/10/21 23:58 Completed Pending at discharge Category Date Time Status Complete Blood Co unt w/Auto AM LABS Lab 09/12/21 04:00 Ordered Complete Blood Co unt w/Auto AM LABS Lab 09/13/21 04:00 Ordered Comprehensive Met abolic Panel AM LA BS Lab 09/12/21 04:00 Ordered Comprehensive Met abolic Panel AM LA BS Lab 09/13/21 04:00 Ordered Magnesium AM LABS Lab 09/12/21 04:00 Ordered Magnesium AM LABS Lab 09/13/21 04:00 Ordered Phosphorus AM LAB S Lab 09/12/21 04:00 Ordered Phosphorus AM LAB S Lab 09/13/21 04:00 Ordered Labs from last 24 hours 09/11/21 09/11/21 09/11/21 11:33 05:46 05:46 WBC 6.9 RBC 4.57 Hgb 13.5 Hct 39.8 L MCV 87.1 MCH 29.5 MCHC 33.9 RDW 12.3 Plt Count 231 MPV 9.9 Neut % (Auto) 60.1 Lymph % (Auto) 25.2 [place] % (Auto) 8.8 Eos % (Auto) 5.1 Baso % (Auto) 0.7 Neut # (Auto) 4.15 Lymph # (Auto) 1.7 [place] # (Auto) 0.6 Eos # (Auto) 0.4 Baso # (Auto) 0.1 Nucleated RBC % (a uto) 0 Nucleated RBCs # 0.0 Sodium 138 Potassium 3.7 Chloride 104 Carbon Dioxide 19 L Anion Gap 18.7 BUN 12 Creatinine 0.9 GFR Calculation 85.8 L Glucose 104 POC Glucose 128 H Calculated Osmolal ity 286 Calcium 8.4 L Phosphorus 2.9 Magnesium 1.9 Total Bilirubin 0.6 AST 13 ALT 10 Alkaline Phosphata se 73 Total Protein 6.9 Albumin 3.9 Globulin 3.0 TSH 09/10/21 09/09/21 17:10 17:30 WBC RBC Hgb Hct MCV MCH MCHC RDW Plt Count MPV Neut % (Auto) Lymph % (Auto) [place] % (Auto) Eos % (Auto) Baso % (Auto) Neut # (Auto) Lymph # (Auto) [place] # (Auto) Eos # (Auto) Baso # (Auto) Nucleated RBC % (a uto) Nucleated RBCs # Sodium Potassium Chloride Carbon Dioxide Anion Gap BUN Creatinine GFR Calculation Glucose POC Glucose 134 H Calculated Osmolal ity Calcium Phosphorus Magnesium Total Bilirubin AST ALT Alkaline Phosphata se Total Protein Albumin Globulin TSH 0.81 Vitals: Last Vital Signs Temp 97.9 F 09/11/21 11:35 Pulse 50 L 09/11/21 11:35 Resp 16 09/11/21 11:35 BP 126/79 09/11/21 11:35 Pulse Ox 94 09/11/21 11:35 Discharge Plan Discharge Patient Disposition: Home Condition: Stable Prescriptions: New atorvastatin 40 mg Tablet 40 mg PO BEDTIME 30 Days Qty: 60 RF: 0 aspirin 81 mg Tablet,Delayed Release (Dr/Ec) 81 mg PO DAILY 30 Days Qty: 30 RF: 0 Eliquis 5 mg Tablet 5 mg PO BID@0900,2100 30 Days Qty: 60 RF: 0 sotalol 80 mg tablet 40 mg PO Q12H 30 Days Qty: 30 RF: 0 Continued buspirone 10 mg tablet 10 mg PO BID Qty: 180 RF: 1 Edarbyclor 40-12.5 mg Tablet 1 tab PO QAM RF: 0 Paxil 40 mg Tablet 40 mg PO DAILY RF: 0 Discontinued aspirin 325 mg tablet 325 mg PO DAILY Qty: 90 RF: 3 (DME) Auto C-PAP 5-20 cm H2O See Rx Instructions .Route .MEDSUPPLY Qty: 1 RF: 0 celecoxib 200 mg Capsule 200 mg PO BID PRN (Reason: Pain) RF: 0 atorvastatin [Lipitor] 80 mg Tablet 80 mg PO DAILY RF: 0 sotalol 120 mg tablet 60 mg PO BID RF: 0 Excedrin Migraine 250-250-65 mg Tablet 2 tab PO Q6H PRN (Reason: Migraine Headache) RF: 0 Discharge Orders: Discharge Order (Routine); Ordered 09/11/21 Ordered By: Paramjit Arevalo Other Ambulatory Orders: CA cardiac event monitor (Routine) Timeframe: 1 Day Facility: [facility] - Location: Cardiac Diagnostic Laboratory Ordered By: Paramjit Arevalo Referrals: Paola Macdonald MD [Physician] - 1 month Edita Murillo, SALES OPERATIONS ASSISTANT-C [Primary Care Provider] - (Please call Monday morning to schedule a hospital follow-up appointment. ) Omar Finnegan M.D [Physician] - 2 weeks Paramjit Arevalo MD [Hospitalist] - Discharge Diet: Cardiac Discharge Activity: Resume usual activity Patient Instructions: Aspirin (By mouth), Atorvastatin (By mouth), Sotalol (By mouth), Apixaban (By mouth), Transient Ischemic Attack (GEN), Opioid Safety Activity Restrictions/Additional Instructions: -Start sotalol 40 milligrams twice daily starting on Monday -Start Eliquis 5 mg twice daily today -Monitor for bloody or black stools if so go to the emergency room -Event monitor for the next 40 days, follow-up with cardiology thereafter -Please follow-up with primary care provider for consideration of colonoscopy within 1 to 2 months -Follow-up with primary care provider for mammography Discharge Attestations Time Spent in Discharge Care*: less than 30 min Quality Metrics Clinical Quality Measures During this hospital stay, did patient experience: Stroke Contraindication to Antithrombotic: Antithrombotic prescribed Contraindication to Anticoagulation: Anticoagulation prescribed Contraindication to Statin: Statin prescribed Coding Level of Care Code [facility] note Diagnoses Atrial fibrillation I48.91 Stroke I63.9 Retinal arterial branch occlusion H34.239 Controlled diabetes mellitus with hyperglycemia E11.65 Hypertension I10 Hypertension type: essential hypertension Mixed hyperlipidemia E78.2
[2021-09-11 13:49] VITALS: BP 126/79; PULSE 50; RESP 16; TEMP 36.6; O2SAT 94
== END 2021-09-11 13:50 | disposition home or self-care (01) ==
LOC: ER 20:21 → MEDSURG 20:24
PROVIDERS: Admitting Provider Student in an Organized Health Care Education/Training Program; Emergency Provider Family Medicine; PCP Nurse Practitioner; Visit Provider Family Medicine
DX: I48.91 Unspecified atrial fibrillation (principal); I63.9 Cerebral infarction, unspecified; H34.239 Retinal artery branch occlusion, unspecified eye; E11.65 Type 2 diabetes mellitus with hyperglycemia; I10 Essential (primary) hypertension; E78.2 Mixed hyperlipidemia; Z79.82 Long term (current) use of aspirin; Z87.891 Personal history of nicotine dependence
CPT/HCPCS: 36415; 36416; 70450; 70496; 70498; 70551; 80053; 80061; 82962; 83036; 83735; 84100; 84443; 85025; 85651; 86140; 92523; 93005; 93306; 96360; 96361; 97161; 99285; G0378; J7030; Q9967

== ENCOUNTER → 2022-12-28 10:41 | Outpatient (BNVA) | payer OTHER, SELFPAY | PROVIDERS: PCP Family Medicine; Visit Provider Nurse Practitioner Family | DX: M25.461 Effusion, right knee (principal); M25.561 Pain in right knee | CPT/HCPCS: 73562 ==

== ENCOUNTER → 2023-02-08 15:44 | Outpatient (BNVA) | payer OTHER, SELFPAY | PROVIDERS: PCP Family Medicine; Visit Provider Orthopaedic Surgery | DX: M19.011 Primary osteoarthritis, right shoulder (principal); M19.012 Primary osteoarthritis, left shoulder | CPT/HCPCS: 73030 ==

== ENCOUNTER → 2023-02-21 09:54 | Outpatient (BNVA) | payer OTHER, SELFPAY | PROVIDERS: PCP Nurse Practitioner Family; Referring Provider Nurse Practitioner Family; Visit Provider Dermatology | DX: Z01.89 Encounter for other specified special examinations (principal) ==

== ENCOUNTER → 2023-07-06 10:04 | Outpatient (BNVA) | payer SELFPAY | PROVIDERS: PCP Nurse Practitioner Family; Visit Provider Nurse Practitioner Family | DX: I10 Essential (primary) hypertension (principal); Z12.5 Encounter for screening for malignant neoplasm of prostate; E11.9 Type 2 diabetes mellitus without complications; Z12.11 Encounter for screening for malignant neoplasm of colon | CPT/HCPCS: 80053; 80061; 83036; 84443; 85025; G0103 ==

== ENCOUNTER 2023-10-07 00:04 | Emergency (ER) | payer SELFPAY ==
[2023-10-07 00:09] VITALS: BP 150/84; PULSE 82; RESP 16; TEMP 36.7; O2SAT 96
--- NOTE | 2023-10-07 01:23 | ECG_ITS ---
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 Measurements Intervals [place] Rate: 70 P: 67 [place]: 180 QRS: 32 QRSD: 96 T: 51 QT: 387 QTc: 419 Interpretive Statements SINUS RHYTHM Compared to ECG 09/10/2021 00:36:42 Sinus bradycardia no longer present Myocardial infarct finding no longer present Electronically Signed On 10-07-2023 21:56:01 PATIENT ADMITTING REPRESENTATIVE by Debra Bob M.D. [id number]
[2023-10-07 01:51] LABS: Basophils % 0.4 %; Eosinophils # 0.3 10^3/uL (0.0-0.8); Eosinophils % 2.9 %; Hematocrit 45.5 % (37-53); Lymphocytes # 1.7 10^3/uL (0.8-4.8); Lymphocytes % 19.4 %; Mean Corpuscular HGB Conc 34.5 g/dL (30-55); Mean Corpuscular Hemoglobin 29.2 pg (27-33); Mean Corpuscular Volume 84.6 fl (82-101); Mean Platelet Volume 9.3 fL (7.4-10.4); Monocytes # 0.7 10^3/uL (0.2-0.9); Monocytes % 7.9 %; Neutrophils # 6.15 10^3/uL (1.8-7.7); Neutrophils % 69.1 %; Nucleated Red Blood Cells % 0 %; Platelet Count 238 10^3/cmm (157-399); Red Blood Count 5.38 10^6/uL (3.85-5.65); Red Cell Distribution Width 12.7 % (12.1-15.1); White Blood Count 8.91 10^3/uL (3.29-11.43)
[2023-10-07 01:56] LABS: INR 1.14 (0.8-1.2)
[2023-10-07 01:57] LABS: Partial Thromboplastin Time 28.3 SECONDS (23.9-36.7)
[2023-10-07 02:09] LABS: Troponin(5th) Baseline 10 ng/L (0-15)
[2023-10-07 02:17] LABS: Alanine Aminotransferase 17 U/L (0-41); Albumin Level 4.6 g/dL (3.5-5.2); Alkaline Phosphatase 116 U/L (40-130); Anion Gap 16.8 (5-19); Aspartate Amino Transferase 16 U/L (0-40); Blood Urea Nitrogen 17 mg/dL (8-23); Calcium 9.6 mg/dL (8.5-10.5); Carbon Dioxide 22 mmol/L (22-29); Chloride 103 mmol/L (98-107); Globulin 3.2 g/dL (1.3-4.6); Glomerular Filtration Rate 85.2 mL/min (90-130); Glucose 107 mg/dL (65-115); Magnesium 2.1 mg/dL (1.7-2.3); NT Pro B Type Natriuretic Pept 56 pg/mL (0-125); Osmolality Calculated 288 mOsm/kg (285-295); Potassium 3.8 mmol/L (3.5-5.1); Sodium 138 mmol/L (136-145); Thyroid Stimulating Hormone 2.11 uIU/mL (0.27-4.20); Total Bilirubin 0.5 mg/dL (0.15-1.2); Total Protein 7.8 g/dL (6.6-8.7)
[2023-10-07 03:51] VITALS: BP 159/97; PULSE 78; RESP 18; O2SAT 99
--- NOTE | 2023-10-07 04:30 | W.ED.GENADLT ---
HPI - General Adult General: Chief complaint: General Medical Stated complaint: Check BP Time Seen by Provider: 10/07/23 01:02 History of Present Illness: 62-year-old male patient with a history of hypertension. He also has a history of atrial fibrillation status post 2 ablation procedures. He has recently been having trouble with his blood pressure. It seems to be spiking at times. This evening, his blood pressure was in the 180s systolic. In the last week, it has been as high as 211 systolic. He says cardiology team from [place] yesterday, and was prescribed hydralazine 25 mg. He has only had 1 dose. He has been using clonidine 0.1 mg at times, usually about once a day to bring his blood pressure down acutely when he gets high. When his blood pressure is high, he gets headaches, usually a frontal headache, sometimes associated loosely with kaleidoscope type vision mainly in his left eye. His blood pressure was improved on arrival. His head is not hurting currently. No chest pain. Associated symptoms: Reports headache(s); Deny chest pain, confusion, dyspnea, nausea, rash, palpitations or vomiting Review of Systems Const: Denies: fever(s), chills or body aches Eyes: Denies: change in vision Card: Denies: chest pain or palpitations Resp: Denies: dyspnea, productive cough, non-productive cough or wheezing GI: Denies: abdominal pain, nausea, vomiting, diarrhea or hematochezia Skin/Breast: Denies: rash Neuro: Reports: headache(s) and dizziness; Denies: weakness in extremities or confusion PFS ED PFSH: Medical History Sick sinus syndrome due to sinoatrial node dysfunction Hypertension Mixed hyperlipidemia Anxiety Atrial fibrillation Surgical History History of extraction of renal calculus History of coronary angioplasty 2016 in [place], [place] Family History Other Cancer Diabetes Heart disease Social History Second hand smoke exposure: No Alcohol intake: current Alcohol intake frequency: holidays/special occasions only Substance/Drug Use: never Do you think of yourself as: Straight/Heterosexual Current gender identity: Male Physical Exam Const: COMMON NORMALS: no acute distress GENERAL APPEARANCE: cooperative; not ill appearing and not frail appearing HENMT: COMMON NORMALS: normocephalic, atraumatic and Normal external nose present HEAD & SCALP: normocephalic and atraumatic FACE & SINUS: normal facial exam and face symmetric NOSE: Normal external nose present Eye: COMMON NORMALS: Equal, round and reactive pupils present and EOMs intact bilaterally PUPIL: Yes Equal, round and reactive pupils present Neck/C-Spine: GENERAL: Yes trachea midline Chest: CHEST: Yes Symmetrical chest wall rise Resp: COMMON NORMALS: normal respiratory effort, No retractions, No use of accessory muscles and clear to auscultation bilaterally AUSCULTATION: clear to auscultation bilaterally Cardio: COMMON NORMALS: regular rate and regular rhythm RATE: regular rate RHYTHM: regular rhythm GI: COMMON NORMALS: Normal to inspection, nondistended, normoactive bowel sounds present Extremity: COMMON NORMALS: no pedal edema Neuro: SHREYAS COMA SCALE: document GCS findings [place] coma scale eye opening: Spontaneous [place] coma scale verbal response: Orientated Shreyas coma scale motor response: Obey commands Shreyas coma scale total score: 15 SENSORY EXAM: Yes extremities (intact) Psych: COMMON NORMALS: speech normal SPEECH: Yes normal speech Skin: COMMON NORMALS: no rashes or lesions noted GENERAL SKIN EXAM: no rashes or lesions noted Course Vital Signs: Vital signs: Vital Signs Temperature 98.0 F 10/07/23 00:09 Pulse Rate 78 10/07/23 03:51 Respiratory Rate 18 10/07/23 03:51 Blood Pressure 159/97 10/07/23 03:51 Pulse Oximetry 99 10/07/23 03:51 [facility] - General Adult Medical Decision Making Blood pressure has remained good in the ER. On my follow-up with the patient after test results came in, his systolic pressure is 124. His CBC is normal. His BMP is normal. His TSH is normal. His troponin is normal. His BNP is normal. His EKG shows a sinus rhythm with a rate of 70, normal axis and intervals, and no acute ST wave changes. With improvement in his pressure, will be allowed home. There is some concern the patient has over taking losartan, as it seems that his blood pressure actually increases an hour and a half after he takes it in the morning. He is also on amlodipine which she takes in the morning. He was placed on hydralazine only twice daily. Because of this, we will allow him not to take his losartan. He will take hydralazine every 8 hours instead. If his blood pressure remains high, he will go back on the losartan. He is to minimize the use of clonidine due to potential for rebound hypertension. Close outpatient follow-up with his doctor. Lab Data 10/07/23 01:32 10/07/23 01:32 Laboratory Results WBC 8.91 10^3/uL (3.29-11.43) 10/07/23 01:32 RBC 5.38 10^6/uL (3.85-5.65) 10/07/23 01:32 Hgb 15.70 g/dL (11.27-16.99) 10/07/23 01:32 Hct 45.5 % (37-53) 10/07/23 01:32 MCV 84.6 fl (82-101) 10/07/23 01:32 MCH 29.2 pg (27-33) 10/07/23 01:32 MCHC 34.5 g/dL (30-55) 10/07/23 01:32 RDW 12.7 % (12.1-15.1) 10/07/23 01:32 Plt Count 238 10^3/cmm (157-399) 10/07/23 01:32 MPV 9.3 fL (7.4-10.4) 10/07/23 01:32 Neut % (Auto) 69.1 % 10/07/23 01:32 Lymph % (Auto) 19.4 % 10/07/23 01:32 [place] % (Auto) 7.9 % 10/07/23 01:32 Eos % (Auto) 2.9 % 10/07/23 01:32 Baso % (Auto) 0.4 % 10/07/23 01:32 Neut # (Auto) 6.15 10^3/uL (1.8-7.7) 10/07/23 01:32 Lymph # (Auto) 1.7 10^3/uL (0.8-4.8) 10/07/23 01:32 [place] # (Auto) 0.7 10^3/uL (0.2-0.9) 10/07/23 01:32 Eos # (Auto) 0.3 10^3/uL (0.0-0.8) 10/07/23 01:32 Baso # (Auto) 0.0 10^3/uL (0.0-0.1) 10/07/23 01:32 Nucleated RBC % (auto) 0 % 10/07/23 01:32 Nucleated RBCs # 0.0 /100WBC 10/07/23 01:32 PT 15.00 SECONDS (12.1-14.9) H 10/07/23 01:32 INR 1.14 (0.8-1.2) 10/07/23 01:32 APTT 28.3 SECONDS (23.9-36.7) 10/07/23 01:32 Sodium 138 mmol/L (136-145) 10/07/23 01:32 Potassium 3.8 mmol/L (3.5-5.1) 10/07/23 01:32 Chloride 103 mmol/L (98-107) 10/07/23 01:32 Carbon Dioxide 22 mmol/L (22-29) 10/07/23 01:32 Anion Gap 16.8 (5-19) 10/07/23 01:32 BUN 17 mg/dL (8-23) 10/07/23 01:32 Creatinine 0.9 mg/dL (0.7-1.2) 10/07/23 01:32 GFR Calculation 85.2 mL/min (90-130) L 10/07/23 01:32 Glucose 107 mg/dL (65-115) 10/07/23 01:32 Calculated Osmolality 288 mOsm/kg (285-295) 10/07/23 01:32 Calcium 9.6 mg/dL (8.5-10.5) 10/07/23 01:32 Magnesium 2.1 mg/dL (1.7-2.3) 10/07/23 01:32 Total Bilirubin 0.5 mg/dL (0.15-1.2) 10/07/23 01:32 AST 16 U/L (0-40) 10/07/23 01:32 ALT 17 U/L (0-41) 10/07/23 01:32 Alkaline Phosphatase 116 U/L (40-130) 01/27/24 01:32 Troponin T Baseline 10 ng/L (0-15) 10/07/23 01:32 NT-Pro-B Natriuret Pep 56 pg/mL (0-125) 10/07/23 01:32 Total Protein 7.8 g/dL (6.6-8.7) 10/07/23 01:32 Albumin 4.6 g/dL (3.5-5.2) 10/07/23 01:32 Globulin 3.2 g/dL (1.3-4.6) 10/07/23 01:32 TSH 2.11 uIU/mL (0.27-4.20) 10/07/23 01:32 No radiology studies performed this visit Discharge Plan Discharge Patient Disposition: Home Clinical Impression: Hypertension Qualifiers: Hypertension type: essential hypertension Qualified Code(s): I10 - Essential (primary) hypertension Condition: Stable Prescriptions: New hydralazine 25 mg tablet 25 mg PO TID Qty: 90 0RF No Action ibuprofen 800 mg tablet 800 mg PO TID PRN (Reason: pain) Qty: 21 0RF naproxen sodium [Aleve] 220 mg capsule 220 mg PO BID PRN omeprazole magnesium [Prilosec OTC] 20 mg tablet,delayed release (DR/EC) 20 mg PO DAILY sotalol 80 mg tablet 40 mg PO BID Qty: 90 1RF losartan 50 mg tablet 50 mg PO DAILY Qty: 90 1RF bupropion HCl [Wellbutrin XL] 150 mg tablet extended release 24 hr 150 mg PO QAM Qty: 90 1RF buspirone 15 mg tablet 15 mg PO BID PRN (Reason: anxiety) Qty: 180 1RF Xarelto 20 mg tablet 20 mg PO DAILY Qty: 90 1RF Rx Instructions: must administer with evening meal 340B doxycycline hyclate 100 mg capsule 100 mg PO BID Qty: 14 0RF prednisone 20 mg tablet 20 mg PO BID Qty: 10 0RF clonidine HCl 0.1 mg tablet 0.1 mg PO TID PRN (Reason: blood pressure > 170/90) Qty: 30 2RF atorvastatin 80 mg tablet 80 mg PO DAILY Qty: 90 1RF Discharge Orders: Discharge ED (Routine); Ordered 10/07/23 Ordered By: Isreal Macias Referrals: Shahid,Iwona, COUNTER PROFESSIONAL-C [Primary Care Provider] - 4-7 days Patient Instructions: Hypertension (ED), Opioid Safety, Pain Management Activity Restrictions/Additional Instructions: Check your blood pressure twice daily. Report numbers to your physician. Increase your hydralazine from twice a day to 3 times a day as we discussed. You may do a trial of your blood pressure medication without losartan if you wish, but add it back after 48 hours if blood pressure remains high. Return for significant chest discomfort, mental status changes, language problems, weakness, other concerning symptoms. Coding Level of Care Code ED Quality Assurance Practice Manager for Herbert Fisher
== END 2023-10-07 03:27 | disposition home or self-care (01) ==
PROVIDERS: Emergency Provider Emergency Medicine; PCP Nurse Practitioner Family
DX: I10 Essential (primary) hypertension (principal); E78.2 Mixed hyperlipidemia; Z98.61 Coronary angioplasty status
CPT/HCPCS: 36415; 80053; 83735; 83880; 84443; 84484; 85025; 85610; 85730; 93005; 99284

== ENCOUNTER → 2024-06-27 13:25 | Outpatient (BNVA) | payer SELFPAY | PROVIDERS: PCP Nurse Practitioner Family; Visit Provider Family Medicine | DX: I10 Essential (primary) hypertension (principal); I48.21 Permanent atrial fibrillation; E78.2 Mixed hyperlipidemia; E11.65 Type 2 diabetes mellitus with hyperglycemia; F41.9 Anxiety disorder, unspecified; F32.9 Major depressive disorder, single episode, unspecified; W57.XXXA Bitten or stung by nonvenomous insect and other nonvenomous arthropods, initial encounter | CPT/HCPCS: 80053; 80061; 85025 ==

== ENCOUNTER 2025-01-03 08:50 | Outpatient (CLI) | payer MEDICARE, SELFPAY ==
[2025-01-03 09:32] LABS: Basophils % 0.7 %; Eosinophils # 0.3 10^3/uL (0.0-0.8); Eosinophils % 5.3 %; Hematocrit 41.4 % (37-53); Lymphocytes # 1.5 10^3/uL (0.8-4.8); Lymphocytes % 24.1 %; Mean Corpuscular HGB Conc 34.5 g/dL (30-55); Mean Corpuscular Hemoglobin 30.5 pg (27-33); Mean Corpuscular Volume 88.3 fl (82-101); Mean Platelet Volume 9.4 fL (7.4-10.4); Monocytes # 0.6 10^3/uL (0.2-0.9); Monocytes % 9.8 %; Neutrophils % 59.9 %; Nucleated Red Blood Cells % 0 %; Platelet Count 259 10^3/cmm (157-399); Red Blood Count 4.69 10^6/uL (3.85-5.65); Red Cell Distribution Width 12.6 % (12.1-15.1); White Blood Count 6.01 10^3/uL (3.29-11.43)
[2025-01-03 09:49] LABS: INR 1.65 (0.8-1.2)
[2025-01-03 09:51] LABS: Partial Thromboplastin Time 32.6 SECONDS (23.9-36.7)
== END 2025-01-03 08:51 | disposition home or self-care (01) ==
PROVIDERS: PCP Family Medicine; Visit Provider Internal Medicine Cardiovascular Disease
DX: I49.8 Other specified cardiac arrhythmias (principal); I48.91 Unspecified atrial fibrillation; I48.19 Other persistent atrial fibrillation
CPT/HCPCS: 36415; 85025; 85610; 85730

== ENCOUNTER 2025-03-27 16:23 | Emergency (ER) | payer MEDICARE, SELFPAY ==
[2025-03-27] VITALS (13 sets, daily range): BP systolic 82–113; BP diastolic 61–76; PULSE 52–110; RESP 14–15; TEMP 37.1; O2SAT 94–98
--- NOTE | 2025-03-27 16:27 | ECG_ITS ---
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 Measurements Intervals [place] Rate: 108 P: 0 [place]: 0 QRS: 25 QRSD: 105 T: 147 QT: 338 QTc: 455 Interpretive Statements ATRIAL FIBRILLATION WITH RAPID VENTRICULAR RESPONSE NONSPECIFIC ST & T-WAVE ABNORMALITY INTERPRETATION BASED ON A DEFAULT AGE OF 40 YEARS Compared to ECG 10/07/2023 00:17:14 T-wave abnormality now present Sinus rhythm no longer present Electronically Signed On 03-29-2025 14:12:04 CDT by Debra Bob M.D. [id number]
--- NOTE | 2025-03-27 16:30 | XR_ITS ---
WS: [id number] XR chest 1V portable [id number] REASON FOR EXAM: Chest pain FINDINGS: Small cardiac device over the left chest. Additional artifact or device overlying the medial left hilum. The chest is otherwise unchanged compared to 01/23/2020. Moderate tortuosity and ectasia of the thoracic aorta. Mild cardiomegaly. Hiatal hernia. Calcified granulomas disease bilaterally. No acute pulmonary parenchymal or pleural abnormality. 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 Moderate degenerative spondylosis in the thoracic spine. XR/XR chest 1V portable [id number] IMPRESSION: Stable chest without acute abnormality.
--- NOTE | 2025-03-27 16:49 | ED_ITS ---
HPI - Chest Pain 2 General: Chief Complaint: Chest Pain Stated Complaint: Chest pain, abdnormal ekg Time Seen by Provider: 03/27/25 16:43 History of Present Illness: 64-year-old man with a history of atrial fibrillation status post multiple ablations and a recent watchman placement who presents the emergency room with chest pain. He been having some issues with bradycardia and reports a couple of times he has had pauses in the past. He had been taken off of his sotalol for a while and then recently restarted on a low-dose of metoprolol. And then over the last day he was restarted on his sotalol. His EP doctor at [facility] in [place] had told him to come to the hospital to get an outpatient EKG but on the way there he developed palpitations and chest pain. On arrival here his heart rates in the 150s. He tells me that the EP doctor told us not to give him any medications or try to convert him that he likely would convert on his own. Related Data Home Medications ?Medication ?Instructions ?Recorded ?Confirmed omeprazole magnesium 20 mg 20 mg PO DAILY 01/18/2308/04 tablet,delayed release (Prilosec OTC) Previous Rx's ?Medication ?Instructions ?Recorded clonidine HCl 0.1 mg tablet 0.1 mg PO TID PRN blood pr essure > 09/20/23 170/90 #30 tabs atorvastatin 80 mg tablet 80 mg PO DAILY #90 tabs 12/02 buspirone 15 mg tablet 15 mg PO BID PRN anxiety #18 0 tabs 06/13/24 Held on 06/27/24. Instructions: Adverse Reaction losartan 50 mg tablet 50 mg PO DAILY #90 tabs 12/02 amlodipine 10 mg tablet 10 mg PO DAILY bp #1 tab tadalafil 20 mg tablet 20 mg PO DAILY PRN sexual ac tivity 06/27/24 #30 tabs bupropion HCl 150 mg 24 hr tablet, 150 mg PO QAM #90 t abs 09/17/24 extended release (Wellbutrin XL) rivaroxaban 20 mg tablet (Xarelto) 20 mg PO DAILY #90 tabs 09/23/24 sotalol 80 mg tablet 40 mg (1/2 x 80 mg) PO BID # 90 tabs 09/23/24 Allergies Allergy/AdvReac Type Severity Reaction Status Date / Time metformin Allergy Intermediate weakness Verified 06/27/24 13:39 lisinopril Allergy ALGY-Swell Verified 06/27/24 12:45 Lip/Tongue/Throat Review of Systems 2 Narrative: Constitutional symptoms: Negative except as documented in HPI. Skin symptoms: Negative except as documented in HPI. Eye symptoms: Negative except as documented in HPI. ENMT symptoms: Negative except as documented in HPI. Respiratory symptoms: Negative except as documented in HPI. Cardiovascular symptoms: Negative except as documented in HPI. Gastrointestinal symptoms: Negative except as documented in HPI. Genitourinary symptoms: Negative except as documented in HPI. Musculoskeletal symptoms: Negative except as documented in HPI. Neurologic symptoms: Negative except as documented in HPI. Psychiatric symptoms: Negative except as documented in HPI. Endocrine symptoms: Negative except as documented in HPI. PFSH ED 2 PFSH: Medical History (Updated 03/27/25 @ 20:27 by Patience Linton MD) Sick sinus syndrome due to sinoatrial node dysfunction Hypertension Mixed hyperlipidemia Anxiety Atrial fibrillation Surgical History History of extraction of renal calculus History of coronary angioplasty 2016 in [place], [place] Family History Other Cancer Diabetes Heart disease Social History Smoking and tobacco/nicotine status: never used tobacco/nicotine Second hand smoke exposure: No Alcohol intake: current Alcohol intake frequency: holidays/special occasions only Substance/Drug Use: never Do you think of yourself as: Straight/Heterosexual Current gender identity: Male Physical Exam 2 Narrative: EXAM NARRATIVE: General: Alert, no acute distress. Skin: Warm, dry. Head: Normocephalic, atraumatic. Neck: Supple, trachea midline. Eye: Extraocular movements are intact. Ears, nose, mouth and throat: mucosa moist. Cardiovascular: Tachycardic, irregular, Normal peripheral perfusion. Respiratory: Lungs are clear to auscultation, respirations are non-labored, breath sounds are equal, Symmetrical chest wall expansion. Gastrointestinal: Soft, Nontender, Non distended Musculoskeletal: Normal ROM, no deformity. Neurological: Alert and oriented, No focal neurological deficit observed. Psychiatric: Cooperative, appropriate mood & affect. Course 2 Vital Signs: Vital signs: Vital Signs Temperature 98.7 F 03/27/25 16:31 Pulse Rate 55 L 03/27/25 19:45 Respiratory Rate 15 03/27/25 19:45 Blood Pressure 92/68 03/27/25 19:30 Pulse Oximetry 95 03/27/25 19:45 Oxygen Delivery Me thod Room Air 03/27/25 19:45 MDM - Chest Pain Medical Decision Making Differential diagnosis for patient with chest pain includes but is not limited to and based on the above HPI, review of systems and physical exam: Pneumonia. unstable angina. angina. Acute coronary syndrome / ND. Pulmonary embolism. Costochondritis / musculoskeletal. Pleurisy. Pericarditis. Esophageal spasm. Pancreatis. Cholecystitis. Orders placed to evaluate differential diagnosis based on the above differential, HPI and physical exam EKG: atrial fibrillation with rapid ventricular response, No ST-T changes, no ectopy, This was reviewed and interpreted by myself the ER physician at 1631 Lab Review: Laboratory results were reviewed and interpreted by myself the emergency room physician. No leukocytosis. No anemia. No renal failure. Initial troponin is negative. proBNP is slightly elevated at 1800. 1 year ago it was 60. Repeat troponin is at 12 and unchanged. 1723: Cardiac monitoring shows what appears to be a nearly 12-second pause and then he converted into sinus bradycardia. Patient reports this was symptomatic he felt strange in his chest and a bit short of breath. Repeat EKG: Sinus bradycardia, No ST-T changes, no ectopy, normal WA & QRS intervals, This was reviewed and interpreted by myself the ER physician at 1842. EKG is significantly changed. He is converted from A-fib to sinus bradycardia. There was a significant pause. I reviewed the patient's medical record. Reexamination: Patient has remained in a sinus bradycardia rhythm. No further chest pain. No altered mental status. No increased work of breathing. Consultation: I spoke with EP SENIOR RECEPTIONIST on-call for EP physician that follows this patient. She recommends transfer and consideration of pacemaker placement as this is been on multiple episodes of pauses. Consultation: I spoke with Dr. Rea who is on-call for the cardiology here. He does not recommend an emergent temporary pacemaker at this point. He feels that the pauses are when the patient converts and now he is in sinus rhythm. He feels he can safely transfer at this time. Consultation: I spoke with the hospitalist on-call at [facility] who accepts the patient in transfer. Assessment and plan: Atrial fibrillation with rapid ventricular response Conversion pause Sinus bradycardia Concern for sick sinus syndrome -I discussed the patient with the accepting physician on-call. - Discussed findings and plan with patient. Answered any questions. - All laboratory values were reviewed and interpreted personally by myself, the ER physician - All imaging was reviewed and interpreted personally by myself, the ER physician. - Evaluation and treatment of this problem were appropriate in the emergency setting Lab Data 03/27/25 17:25 03/27/25: Laboratory Results WBC 10.47 10^3/uL (3.29-11.43) 03/27/25: RBC 5.08 10^6/uL (3.85-5.65) 03/27/25: Hgb 15.20 g/dL (11.27-16.99) 03/27/25: Hct 45.6 % (37-53) 03/27/25: MCV 89.8 fl (82-101) 03/27/25: MCH 29.9 pg (27-33) 03/27/25: MCHC 33.3 g/dL (30-55) 03/27/25: RDW 12.8 % (12.1-15.1) 03/27/25: Plt Count 315 10^3/cmm (157-399) 03/27/25: MPV 9.1 fL (7.4-10.4) 03/27/25: Neut % (Auto) 75.6 % 03/27/25: Lymph % (Auto) 12.9 % 03/27/25: [place] % (Auto) 7.8 % 03/27/25: Eos % (Auto) 2.6 % 03/27/25: Baso % (Auto) 0.8 % 03/27/25: Neut # (Auto) 7.92 10^3/uL (1.8-7.7) H 03/27/25: Lymph # (Auto) 1.4 10^3/uL (0.8-4.8) 03/27/25 17:25 [place] # (Auto) 0.8 10^3/uL (0.2-0.9) 03/27/25 17:25 Eos # (Auto) 0.3 10^3/uL (0.0-0.8) 03/27/25 17: Baso # (Auto) 0.1 10^3/uL (0.0-0.1) 03/27/25: Nucleated RBC % (auto) 0 % 03/27/25: Nucleated RBCs # 0.0 /100WBC 03/27/25 17: Sodium 142 mmol/L (136-145) 03/27/25: Potassium 4.2 mmol/L (3.5-5.1) 03/27/25: Chloride 106 mmol/L (98-107) 03/27/25: Carbon Dioxide 20 mmol/L (22-29) L 03/27/25: Anion Gap 20.2 (5-19) H 03/27/25: BUN 18 mg/dL (8-23) 03/27/25: Creatinine 0.9 mg/dL (0.7-1.2) 03/27/25: GFR Calculation 84.7 mL/min (90-130) L 03/27/25: Glucose 104 mg/dL (65-115) 03/27/25: Calculated Osmolality 296 mOsm/kg (285-295) H 03/27/25: Calcium 9.0 mg/dL (8.5-10.5) 03/27/25: Magnesium 2.3 mg/dL (1.7-2.3) 03/27/25: Total Bilirubin 0.5 mg/dL (0.15-1.2) 03/27/25: AST 20 U/L (0-40) 03/27/25:25 ALT 19 U/L (0-41) 03/27/25:25 Alkaline Phosphatase 88 U/L (40-130) 03/27/25: Troponin T Baseline 12 ng/L (0-15) 03/27/25 17:25 Troponin T 120 Minute 10.25 ng/L (0-15) 03/27/25 19:20 Delta Troponin T -1.75 ABS# (0-10) L 03/27/25 19:20 NT-Pro-B Natriuret Pep 1805 pg/mL (0-125) H 03/27/25 17:25 Total Protein 7.3 g/dL (6.6-8.7) 03/27/25 17:25 Albumin 4.3 g/dL (3.5-5.2) 03/27/25 17:25 Globulin 3.0 g/dL (1.3-4.6) 03/27/25 17:25 TSH 1.07 uIU/mL (0.27-4.20) 03/27/25 17:25 No radiology studies performed this visit Discharge Plan Discharge Patient Disposition: Xfer Short-Term Hosp Clinical Impression: Atrial fibrillation with rapid ventricular response, Paroxysmal atrial fibrillation with conversion pauses Condition: Stable Referrals: Jd Will, [Primary Care Provider, [facility]] Print Language: Indonesian Coding Level of Care Code ED Leasing Manager for Herbert Fisher
[2025-03-27 17:41] LABS: Hematocrit 45.6 % (37-53); Hemoglobin 15.20 g/dL (11.27-16.99); Mean Corpuscular HGB Conc 33.3 g/dL (30-55); Mean Corpuscular Hemoglobin 29.9 pg (27-33); Mean Corpuscular Volume 89.8 fl (82-101); Nucleated Red Blood Cells % 0 %; Platelet Count 315 10^3/cmm (157-399); Red Blood Count 5.08 10^6/uL (3.85-5.65); White Blood Count 10.47 10^3/uL (3.29-11.43)
[2025-03-27 18:05] LABS: Troponin(5th) Baseline 12 ng/L (0-15)
[2025-03-27 18:15] LABS: Alanine Aminotransferase 19 U/L (0-41); Albumin Level 4.3 g/dL (3.5-5.2); Alkaline Phosphatase 88 U/L (40-130); Aspartate Amino Transferase 20 U/L (0-40); Blood Urea Nitrogen 18 mg/dL (8-23); Calcium 9.0 mg/dL (8.5-10.5); Carbon Dioxide 20 mmol/L (22-29); Chloride 106 mmol/L (98-107); Creatinine Clr Calc Pharmacy 105.8852; Globulin 3.0 g/dL (1.3-4.6); Glucose 104 mg/dL (65-115); Magnesium 2.3 mg/dL (1.7-2.3); NT Pro B Type Natriuretic Pept 1805 pg/mL (0-125); Osmolality Calculated 296 mOsm/kg (285-295); Sodium 142 mmol/L (136-145); Thyroid Stimulating Hormone 1.07 uIU/mL (0.27-4.20); Total Protein 7.3 g/dL (6.6-8.7)
[2025-03-27 18:20] LABS: Anion Gap 20.2 (5-19); Potassium 4.2 mmol/L (3.5-5.1)
--- NOTE | 2025-03-27 18:37 | PC.NURSE ---
pt requesting that [facility] [place] NADINE.
--- NOTE | 2025-03-27 18:38 | ECG_ITS ---
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
--- NOTE | 2025-03-27 19:43 | PC.NURSE ---
Pt's did a loop recorder on pt's phone and states it is sent to [facility].
[2025-03-27 19:45] LABS: Troponin 5 2HR 10.25 ng/L (0-15)
[2025-03-27 19:48] LABS: Troponin 5 2HR Delta -1.75 ABS# (0-10)
== END 2025-03-27 22:18 | disposition short-term general hospital (02) ==
PROVIDERS: Emergency Provider Emergency Medicine; PCP Family Medicine
DX: I48.20 Chronic atrial fibrillation, unspecified (principal); I48.0 Paroxysmal atrial fibrillation; I10 Essential (primary) hypertension; E78.2 Mixed hyperlipidemia
CPT/HCPCS: 71045; 80053; 83735; 83880; 84443; 84484; 85025; 93005; 99285

== ENCOUNTER → 2025-06-05 14:15 | Outpatient (BNVA) | payer MEDICARE, SELFPAY | PROVIDERS: PCP Family Medicine; Referring Provider Family Medicine; Visit Provider Internal Medicine Cardiovascular Disease | DX: I48.91 Unspecified atrial fibrillation (principal) | CPT/HCPCS: 99204 ==

== ENCOUNTER → 2025-07-23 14:09 | Outpatient (BNVA) | payer MEDICARE, SELFPAY | PROVIDERS: PCP Family Medicine; Visit Provider Clinical Nurse Specialist Adult Health | DX: E11.9 Type 2 diabetes mellitus without complications (principal); E11.65 Type 2 diabetes mellitus with hyperglycemia | CPT/HCPCS: 80053; 83036; 85025 ==